=== PATIENT | female | born 1945 | race African-American/Black ===

== ENCOUNTER 2019-07-12 16:28 | Inpatient (IN) | payer MEDICARE ==
--- NOTE | 2019-07-12 17:49 | ER Document Report ---
ED Medical Screen (RME) - General Chief Complaint: Foot Pain Stated Complaint: TOE PAIN Time Seen by Provider: 07/12/19 17:44 Primary Care Provider: JANI LUGO MD [Primary Care Provider] - Follow up as needed Mode of Arrival: Wheelchair Information source: Patient Notes: 73-year-old female presented to ED for gangrene to the right great toe. She was sent to the emergency room by Dr. Lugo. Is a diabetic with loss of sight and tried to cut her own toenails in February. She states she has a little pain every now and then. She states she does take medications for high blood pressure. She is alert oriented respirations regular nonlabored speaking in full sentences. TRAVEL OUTSIDE OF THE [place] IN LAST 30 DAYS: No - Related Data Allergies/Adverse Reactions: No Known Allergies Allergy (Verified 07/12/19 17:43) Past Medical History - Past Medical History Cardiac Medical History: Reports: Hx Hypertension Endocrine Medical History: Reports: Hx Diabetes Mellitus Type 1 Past Surgical History: Reports: Hx Hysterectomy - Immunizations Hx Diphtheria, Pertussis, Tetanus Vaccination: Yes Physical Exam - Vital signs Vitals: Temp Pulse Resp BP Pulse Ox 98.3 F 98 16 146/78 H 98 07/12/19 16:36 07/12/19 16:36 07/12/19 16:36 07/12/19 16:36 07/12/19 16:36 Course - Vital Signs Vital signs: Temp Pulse Resp BP Pulse Ox 98.3 F 98 16 146/78 H 98 07/12/19 16:36 07/12/19 16:36 07/12/19 16:36 07/12/19 16:36 07/12/19 16:36 Doctor's Discharge - Discharge Referrals: JANI LUGO MD [Primary Care Provider] - Follow up as needed
[2019-07-12 18:31] LABS: ABSOLUTE BASOPHILS # (AUTO) 0.1 10^3/uL (0.0-0.2); ABSOLUTE EOSINOPHILS # (AUTO) 0.1 10^3/uL (0.0-0.6); ABSOLUTE LYMPHOCYTES (AUTO) 2.5 10^3/uL (0.5-4.7); ABSOLUTE MONOCYTES (AUTO) 0.5 10^3/uL (0.1-1.4); ABSOLUTE NEUT (AUTO) 6.9 10^3/uL (1.7-8.2); EOSINOPHILS % (AUTO) 1.2 % (0-6); HEMATOCRIT 35.7 % (36.0-47.0); HEMOGLOBIN 11.6 g/dL (12.0-15.5); LYMPHOCYTES % (AUTO) 24.4 % (13-45); MEAN CORPUSCULAR HEMOGLOBIN 26.3 pg (27.0-33.4); MEAN CORPUSCULAR HGB CONC 32.6 g/dL (32.0-36.0); MEAN CORPUSCULAR VOLUME 81 fl (80-97); MONOCYTES % (AUTO) 5.4 % (3-13); PLATELET COUNT 418 10^3/uL (150-450); RED BLOOD COUNT 4.42 10^6/uL (3.72-5.28); RED CELL DISTRIBUTION WIDTH 13.7 % (11.5-14.0); TOTAL CELLS COUNTED % (AUTO) 100 %; WHITE BLOOD COUNT 10.1 10^3/uL (4.0-10.5)
--- NOTE | 2019-07-12 18:46 | RADIOLOGY REPORT (SQ) ---
EXAM DESCRIPTION: FOOT RIGHT COMPLETE COMPLETED DATE/TIME: 07/12/2019 6:28 pm REASON FOR STUDY: Gangrene right great toe COMPARISON: None. NUMBER OF VIEWS: Three views. TECHNIQUE: AP, lateral and oblique radiographic images acquired of the right foot. LIMITATIONS: None. FINDINGS: MINERALIZATION: Osteopenia. BONES: No acute fracture or dislocation. No cortical destruction. JOINTS: No effusions. SOFT TISSUES: Soft tissue irregularity of the great toe. OTHER: No other significant finding. IMPRESSION: Soft tissue irregularity of the great toe without radiographic findings of acute underly ing bone abnormality. TECHNICAL DOCUMENTATION: JOB ID: [id number] [employer]- All Rights Reserved Reading location - IP/workstation name: [email or web address] [email or web address]
[2019-07-12 18:55] LABS: ALBUMIN 3.6 g/dL (3.5-5.0); ALKALINE PHOSPHATASE 122 U/L (38-126); ANION GAP 10 (5-19); ASPARTATE AMINO TRANSFERASE 14 U/L (14-36); BILIRUBIN,DIRECT 0.1 mg/dL (0.0-0.4); BILIRUBIN,TOTAL 0.3 mg/dL (0.2-1.3); BLOOD UREA NITROGEN 20 mg/dL (7-20); CALCIUM 9.5 mg/dL (8.4-10.2); CARBON DIOXIDE 25 mmol/L (22-30); CHLORIDE 105 mmol/L (98-107); GLUCOSE 191 mg/dL (75-110); POTASSIUM 4.4 mmol/L (3.6-5.0)
--- NOTE | 2019-07-12 20:36 | ER Document Report ---
ED Extremity Problem, Lower - General Chief Complaint: Toe Injury Stated Complaint: TOE PAIN Time Seen by Provider: 07/12/19 17:44 Mode of Arrival: Wheelchair Notes: Patient is a 73-year-old female with a history of insulin-dependent type 2 diabetes and hypertension that comes to the emergency department for chief com plaint of concerns about developing pain, foul smell, and drainage from the right great toe. She states that back in February she was clipping her nails and she accidentally removed the toenail, she states it has not healed since that time. She still able to ambulate. She denies fever/chills, nausea/vomiting. She states that yesterday it started to drain so she was taken to her primary care provider Dr. Lugo today, her states that they were referred from the office to the emergency department for evaluation for her toe. She denies any other complaints. Vaccinations up-to-date. She denies history of smoking, alcohol, recreational drugs, or blood thinner use. TRAVEL OUTSIDE OF THE [place] IN LAST 30 DAYS: No - Related Data Allergies/Adverse Reactions: No Known Allergies Allergy (Verified 07/12/19 17:43) Past Medical History - General Information source: Patient - Social History Smoking Status: Never Smoker Chew tobacco use (# tins/day): No Frequency of alcohol use: None Drug Abuse: None Lives with: Family Family History: Reviewed & Not Pertinent Patient has suicidal ideation: No Patient has homicidal ideation: No - Past Medical History Cardiac Medical History: Reports: Hx Hypertension Endocrine Medical History: Reports: Hx Diabetes Mellitus Type 2 - Insulin- dependent Past Surgical History: Reports: Hx Hysterectomy - Immunizations Hx Diphtheria, Pertussis, Tetanus Vaccination: Yes Review of Systems - Review of Systems Constitutional: No symptoms reported EENT: No symptoms reported Cardiovascular: No symptoms reported Respiratory: No symptoms reported Gastrointestinal: No symptoms reported Genitourinary: No symptoms reported Female Genitourinary: No symptoms reported Skin: See HPI Hematologic/Lymphatic: No symptoms reported Neurological/Psychological: No symptoms reported Physical Exam - Vital signs Vitals: Temp Pulse Resp BP Pulse Ox 98.3 F 98 16 146/78 H 98 07/12/19 16:36 07/12/19 16:36 07/12/19 16:36 07/12/19 16:36 07/12/19 16:36 - Notes Notes: GENERAL: Alert, interacts well. No acute distress. HEAD: Normocephalic, atraumatic. EYES: Pupils equal, round, and reactive to light. Extraocular movements intact. ENT: Oral mucosa moist, tongue midline. Oropharynx unremarkable. Airway patent. LUNGS: Clear to auscultation bilaterally, no wheezes, rales, or rhonchi. No respiratory distress. HEART: Regular rate and rhythm. No murmur ABDOMEN: Soft, non-tender. Non-distended. Bowel sounds present in all 4 quadrants. GENITOURINARY: Deferred EXTREMITIES: Left great toe is swollen, erythematous, there is discoloration of the tissue around the nailbed, nail is gone, there is some mild tenderness over the area. Cap refill still intact, sensation diminished but intact. No current drainage. Foul smell. Unremarkable lower extremity exam otherwise including dorsalis pedis, ankle, leg, knee. BACK: no cervical, thoracic, lumbar midline tenderness. No saddle anesthesia, normal distal neurovascular exam. Moves all extremities in full range of motion. NEUROLOGICAL: Alert and oriented x3. Normal speech. Cranial nerves II through XII grossly intact. PSYCH: Normal affect, normal mood. SKIN: Warm, dry, normal turgor. No rashes or lesions noted. Course - Re-evaluation Re-evalutation: CBC, chemistry nonspecific. Vital signs unremarkable. Patient well-appearing with no other complaints except for the toe. Toe is somewhat erythematous, foul smell, no current discharge, toenail is gone. X-ray showing only soft tissue swelling without bony involvement. Because of patient's worsening toe in the setting of diabetes with developing infection and concern for possible gangrene I will discuss with general surgery. Patient was evaluated by Dr. Alberto, he is excepting the patient to his service. - Vital Signs Vital signs: Temp Pulse Resp BP Pulse Ox 98.1 F 94 18 172/82 H 96 07/13/19 03:28 07/13/19 03:28 07/13/19 03:28 07/13/19 03:28 07/13/19 03:28 - Laboratory Result Diagrams: 07/13/19 05:19 07/13/19 05:19 Laboratory results interpreted by me: 07/12/19 07/12/19 18:00 18:00 Hgb 11.6 L Hct 35.7 L MCH 26.3 L Est GFR (MDRD) Non-Af 52 L Glucose 191 H Discharge - Discharge Clinical Impression: Toe infection, Insulin dependent diabetes mellitus Condition: Stable Disposition: ADMITTED OBSERVATION Admitting Provider: Surgicalist Unit Admitted: Surgical Floor
[2019-07-12] MEDS ORDERED: CEFTRIAXONE 1 GM/D5W RTU 1 GM/50 ML RTUPB IV SCH (22:00)
[2019-07-12] MEDS ORDERED: GLUCAGON,HUMAN RECOMB 1 MG INJ SUBCUT PRN (22:18)
[2019-07-12] MEDS ORDERED: DEXTROSE 50%-WATER 25 GM/50 ML DISP.SYRIN IV PRN ×2 (22:18)
[2019-07-12] MEDS ORDERED: DEXTROSE 40% GEL 15 GM TUBE PO PRN ×2 (22:18)
--- NOTE | 2019-07-12 22:18 | PDOC H&P ---
History of Present Illness Admission Date/PCP: JANI FARIA MD Patient complains of: Right great toe foul smellinmg drainage History of Present Illness: SMITA BAEZ is a 73 year old female, obese, type 2 diabetes, hypertensive, with a history of right great toe swelling and foul smelling drainage for the past few days. According to the , the patient is blind however she was trying to him the right great nail by herself. As a consequence of this, her right great toe nail fell off and since then she has been experiencing foul- smelling drainage from the toe as well as swelling. Past Medical History Cardiac Medical History: Reports: Hypertension Endocrine Medical History: Reports: Diabetes Mellitus Type 1 Past Surgical History Past Surgical History: Reports: Hysterectomy Social History Smoking Status: Never Smoker Electronic Cigarette use?: No Family History Family History: Reviewed & Not Pertinent Parental Family History Reviewed: No Children Family History Reviewed: No Sibling(s) Family History Reviewed.: No Medication/Allergy Home Medications: Insulin Glargine,Hum.rec.anlog [Lantus Insulin 100 Unit/mL] 30 unit SUBCUT QHS 08/16/12 Lisinopril/Hydrochlorothiazide [Zestoretic 20-12.5 mg Tablet] 1 tab PO BID 08/16/12 Metformin HCl [Glucophage 850 Mg Tablet] 850 mg PO BID 08/16/12 Ciprofloxacin HCl [Cipro 500 mg Tablet] 500 mg PO BID #20 tablet 08/17/12 Hydrocodone Bit/Acetaminophen [Hydrocodon-Acetaminophen 5-325] 1 each PO Q4HP PRN #15 tablet 01/31/14 Allergies/Adverse Reactions: No Known Allergies Allergy (Verified 07/12/19 17:43) Physical Exam Vital Signs: Temp Pulse Resp BP Pulse Ox 98.3 F 98 16 146/78 H 98 07/12/19 16:36 07/12/19 16:36 07/12/19 16:36 07/12/19 16:36 07/12/19 16:36 Intake & Output 07/11/19 07/12/19 07/13/19 06:59 06:59 06:59 Weight 93.6 kg General appearance: PRESENT: no acute distress Head exam: PRESENT: atraumatic, normocephalic Eye exam: PRESENT: EOMI Mouth exam: PRESENT: neck supple Teeth exam: PRESENT: poor dentation Neck exam: PRESENT: full ROM Respiratory exam: PRESENT: clear to auscultation burak Cardiovascular exam: PRESENT: RRR Pulses: PRESENT: other - Diminished dorsalis pedis and posterior tibialis pulses bilaterally GI/Abdominal exam: PRESENT: hypoactive bowel sounds, soft Rectal exam: PRESENT: deferred Extremities exam: PRESENT: full ROM, other - Right great toe = edema, loss of nail with exposed nail bed dry, right forefoot skin changes as per inflammatory changes Musculoskeletal exam: PRESENT: full ROM Neurological exam: PRESENT: alert, oriented to person, oriented to situation Psychiatric exam: PRESENT: appropriate affect Skin exam: PRESENT: warm Results Laboratory Results: 07/12/19 18:00 07/12/19 18:00 07/12/19 07/12/19 18:00 18:00 WBC 10.1 RBC 4.42 Hgb 11.6 L Hct 35.7 L MCV 81 MCH 26.3 L MCHC 32.6 RDW 13.7 Plt Count 418 Seg Neutrophils % 68.0 Sodium 139.7 Potassium 4.4 Chloride 105 Carbon Dioxide 25 Anion Gap 10 BUN 20 Creatinine 1.05 Est GFR ( Amer) > 60 Glucose 191 H Calcium 9.5 Total Bilirubin 0.3 AST 14 Alkaline Phosphatase 122 Total Protein 8.0 Albumin 3.6 Impressions: Foot X-Ray 07/12/19 17:45 IMPRESSION: Soft tissue irregularity of the great toe without radiographic findings of acute underlying bone abnormality. Assessment & Plan - Diagnosis (1) right great toe infection Is this a current diagnosis for this admission?: Yes (2) Insulin dependent diabetes mellitus Is this a current diagnosis for this admission?: Yes - Plan Summary Plan Summary: Assessment: Morbidly obese diabetic type II female Right foot shows great toe signs of infection (edema, foul-smelling drainage, skin changes, loss of nail), possibly extending to the forefoot hypertension Normal blood work X-ray right foot shows soft tissue changes of the great toe Plan: Admit N.p.o. after midnight MRI right foot distal leg tomorrow to rule out bone involvement If the patient has osteomyelitis of the toe/ foprefoot, she will undergo great toe amputation or forefoot amputation
[2019-07-12] MEDS ORDERED: FAMOTIDINE INJ/PF 20 MG/2 ML SDV IV ONE (22:45)
[2019-07-12] MEDS: NORMAL SALINE 1000 ML 1,000 ML IV PRN (22:56)
[2019-07-12] MEDS: CLINDAMYCIN 300 MG/D5W RTU 300 MG/50 ML RTUPB IV SCH (22:58)
[2019-07-12] MEDS ORDERED: DOCUSATE SODIUM 100 MG CAPSULE PO ONE (23:00)
[2019-07-13] MEDS ORDERED: GLUCAGON,HUMAN RECOMB 1 MG INJ IM PRN (00:02)
[2019-07-13] MEDS ORDERED: DEXTROSE 40% GEL 15 GM TUBE PO PRN ×2 (00:02)
[2019-07-13] MEDS ORDERED: DEXTROSE 50%-WATER 25 GM/50 ML DISP.SYRIN IV PRN ×2 (00:02)
--- NOTE | 2019-07-13 05:19 | PDOC CONSULTATION ---
Consultation Consult Date: 07/13/19 Attending physician:: BELEN FENG Provider Consulted: YANIV DE GUZMAN Consult reason:: Diabetes History of Present Illness Admission Date/PCP: 07/12/19 22:02 JANI FARIA MD Patient complains of: Right great toe necrosis History of Present Illness: SMITA BAEZ is a 73 year old female with past medical history of morbid obesity, hypertension, diabetes and subsequent blindness. She presents with a couple of weeks of discoloration to her right great toe and uncontrolled blood pressure. Seen by primary care today was referred to the emergency department for evaluation for what appears to be gangrene. She is referred to surgery with plans for MRI and likely amputation. Hospitalist is consulted for management of diabetes and hypertension. Patient admits recent uncontrolled hyperglycemia to spite medication compliance. Past Medical History Cardiac Medical History: Reports: Hypertension Endocrine Medical History: Reports: Diabetes Mellitus Type 1 Psychiatric Medical History: Denies: Depression Past Surgical History Past Surgical History: Reports: Hysterectomy Social History Information Source: Patient, [facility] Records Lives with: Spouse/Significant other Smoking Status: Never Smoker Electronic Cigarette use?: No Frequency of Alcohol Use: None Hx Recreational Drug Use: No Drugs: None Hx Prescription Drug Abuse: No - Advance Directive Resuscitation Status: Full Code Family History Family History: CAD Parental Family History Reviewed: Yes Children Family History Reviewed: Yes Sibling(s) Family History Reviewed.: Yes Medication/Allergy Home Medications: Insulin Glargine,Hum.rec.anlog [Lantus Insulin 100 Unit/mL] 30 unit SUBCUT QHS 08/16/12 Lisinopril/Hydrochlorothiazide [Zestoretic 20-12.5 mg Tablet] 1 tab PO BID 08/16/12 Metformin HCl [Glucophage 850 Mg Tablet] 850 mg PO BID 08/16/12 Ciprofloxacin HCl [Cipro 500 mg Tablet] 500 mg PO BID #20 tablet 08/17/12 Hydrocodone Bit/Acetaminophen [Hydrocodon-Acetaminophen 5-325] 1 each PO Q4HP PRN #15 tablet 01/31/14 Allergies/Adverse Reactions: No Known Allergies Allergy (Verified 07/12/19 17:43) Review of Systems Constitutional: ABSENT: chills, fever(s), headache(s), weight gain, weight loss Eyes: ABSENT: visual disturbances Ears: ABSENT: hearing changes Cardiovascular: ABSENT: chest pain, dyspnea on exertion, edema, orthropnea, pa lpitations Respiratory: ABSENT: cough, hemoptysis Gastrointestinal: ABSENT: abdominal pain, constipation, diarrhea, hematemesis, hematochezia, nausea, vomiting Genitourinary: ABSENT: dysuria, hematuria Musculoskeletal: ABSENT: joint swelling Integumentary: ABSENT: rash, wounds Neurological: ABSENT: abnormal gait, abnormal speech, confusion, dizziness, focal weakness, syncope Psychiatric: ABSENT: anxiety, depression, homidical ideation, suicidal ideation Endocrine: ABSENT: cold intolerance, heat intolerance, polydipsia, polyuria Hematologic/Lymphatic: ABSENT: easy bleeding, easy bruising Physical Exam Vital Signs: Temp Pulse Resp BP Pulse Ox 98.1 F 94 18 172/82 H 96 07/13/19 03:28 07/13/19 03:28 07/13/19 03:28 07/13/19 03:28 07/13/19 03:28 Intake & Output 07/11/19 07/12/19 07/13/19 11:59 11:59 11:59 Intake Total 100 Balance 100 Weight 91.2 kg General appearance: PRESENT: no acute distress, well-developed, well-nourished Head exam: PRESENT: atraumatic, normocephalic Eye exam: PRESENT: conjunctiva pink, EOMI, PERRLA. ABSENT: scleral icterus Ear exam: PRESENT: normal external ear exam Mouth exam: PRESENT: moist, tongue midline Neck exam: ABSENT: carotid bruit, JVD, lymphadenopathy, thyromegaly Respiratory exam: PRESENT: clear to auscultation burak. ABSENT: rales, rhonchi, wheezes Cardiovascular exam: PRESENT: RRR. ABSENT: diastolic murmur, rubs, systolic murmur Pulses: PRESENT: normal dorsalis pedis pul Vascular exam: PRESENT: normal capillary refill GI/Abdominal exam: PRESENT: normal bowel sounds, soft. ABSENT: distended, guarding, mass, organolmegaly, rebound, tenderness Rectal exam: PRESENT: deferred Extremities exam: PRESENT: full ROM. ABSENT: calf tenderness, clubbing, pedal edema Neurological exam: PRESENT: alert, awake, oriented to person, oriented to place, oriented to time, oriented to situation, CN II-XII grossly intact. ABSENT: motor sensory deficit Psychiatric exam: PRESENT: appropriate affect, normal mood. ABSENT: homicidal ideation, suicidal ideation Skin exam: PRESENT: dry, intact, warm, other - Right great toe ulcer with necrosis, subsequent skin darkening to the ankle.. ABSENT: cyanosis, rash Results Laboratory Results: 07/12/19 18:00 07/12/19 18:00 07/12/19 07/12/19 18:00 18:00 WBC 10.1 RBC 4.42 Hgb 11.6 L Hct 35.7 L MCV 81 MCH 26.3 L MCHC 32.6 RDW 13.7 Plt Count 418 Seg Neutrophils % 68.0 Sodium 139.7 Potassium 4.4 Chloride 105 Carbon Dioxide 25 Anion Gap 10 BUN 20 Creatinine 1.05 Est GFR ( Amer) > 60 Glucose 191 H Calcium 9.5 Total Bilirubin 0.3 AST 14 Alkaline Phosphatase 122 Total Protein 8.0 Albumin 3.6 Impressions: Foot X-Ray 07/12/19 17:45 IMPRESSION: Soft tissue irregularity of the great toe without radiographic findings of acute underlying bone abnormality. Assessment and Plan - Diagnosis (1) Hypertension Is this a current diagnosis for this admission?: Yes Plan: RAMSEY inhibitor, hydralazine, Lasix as needed (2) Insulin dependent diabetes mellitus Is this a current diagnosis for this admission?: Yes Plan: Two thirds usual long-acting insulin, Humalog sliding scale ordered (3) right great toe infection Is this a current diagnosis for this admission?: Yes Plan: Anticipate osteoporotic requiring amputation follow-up MRI and surgery - Time Time Spent with patient: 15-24 minutes - Inpatient Certification Medical Necessity: Need Close Monitoring Due to Risk of Patient Decompensation
[2019-07-13 05:44] LABS: ABSOLUTE EOSINOPHILS # (AUTO) 0.1 10^3/uL (0.0-0.6); ABSOLUTE LYMPHOCYTES (AUTO) 2.2 10^3/uL (0.5-4.7); ABSOLUTE MONOCYTES (AUTO) 0.5 10^3/uL (0.1-1.4); ABSOLUTE NEUT (AUTO) 5.4 10^3/uL (1.7-8.2); BASOPHILS % (AUTO) 0.5 % (0-2); EOSINOPHILS % (AUTO) 1.2 % (0-6); HEMATOCRIT 32.3 % (36.0-47.0); HEMOGLOBIN 10.7 g/dL (12.0-15.5); LYMPHOCYTES % (AUTO) 26.8 % (13-45); MEAN CORPUSCULAR HEMOGLOBIN 26.3 pg (27.0-33.4); MEAN CORPUSCULAR VOLUME 80 fl (80-97); MONOCYTES % (AUTO) 6.3 % (3-13); PLATELET COUNT 387 10^3/uL (150-450); RED BLOOD COUNT 4.06 10^6/uL (3.72-5.28); RED CELL DISTRIBUTION WIDTH 13.9 % (11.5-14.0); SEGMENTED NEUTROPHILS % (AUTO) 65.2 % (42-78); TOTAL CELLS COUNTED % (AUTO) 100 %; WHITE BLOOD COUNT 8.2 10^3/uL (4.0-10.5)
[2019-07-13 05:57] LABS: ANION GAP 9 (5-19); BLOOD UREA NITROGEN 18 mg/dL (7-20); CALCIUM 9.2 mg/dL (8.4-10.2); CARBON DIOXIDE 22 mmol/L (22-30); CHLORIDE 112 mmol/L (98-107); GLUCOSE 246 mg/dL (75-110); POTASSIUM 4.7 mmol/L (3.6-5.0)
[2019-07-13] MEDS ORDERED: CLINDAMYCIN 300 MG/D5W RTU 300 MG/50 ML RTUPB IV ONE (05:57)
[2019-07-13] MEDS: CLINDAMYCIN 300 MG/D5W RTU 300 MG/50 ML RTUPB IV SCH ×3 (06:08→21:10)
[2019-07-13] MEDS: NORMAL SALINE 1000 ML 1,000 ML IV PRN (07:33)
[2019-07-13] MEDS ORDERED: FAMOTIDINE INJ/PF 20 MG/2 ML SDV IV SCH (10:00)
[2019-07-13] MEDS: LOSARTAN POTASSIUM 50 MG TABLET PO SCH ×2 (11:17→21:10)
--- NOTE | 2019-07-13 11:55 | RADIOLOGY REPORT (SQ) ---
EXAM DESCRIPTION: MRI RT LOWER EXTREMITY WITHOUT COMPLETED DATE/TIME: 07/13/2019 10:17 am REASON FOR STUDY: r/o osteomyelitis; do early on 07/13 for surgery? COMPARISON: Plain radiographs TECHNIQUE: Multiplanar imaging of the right great toe to include fat and fluid sensitive sequences. LIMITATIONS: None. FINDINGS: BONE MARROW: Decreased signal noted on T1 weighted images medullary distribution distal ph alanx of the great toe. There is 1 small area of cortical disruption along the plantar surface of th e distal tuft. Findings indicate osteomyelitis. SOFT TISSUES: Soft tissue ulcer dorsal surface great toe. No abscess. OTHER: No other significant finding. IMPRESSION: Osteomyelitis involving the distal phalanx of the great toe. Overlying soft tissue juvenal luciano TECHNICAL DOCUMENTATION: JOB ID: [id number] [employer]- All Rights Reserved Reading location - IP/workstation name: [email or web address]
[2019-07-13] MEDS: INSULIN LISPRO 100 UNIT/ML 3 ML VIAL SUBCUT SCH ×3 (12:25→17:38)
--- NOTE | 2019-07-13 12:51 | PDOC PROGRESS REPORT ---
Subjective Progress Note for:: 07/13/19 Subjective:: Patient comfortable, she has no complaints Reason For Visit: RIGHT GREAT TOE INFECTION Physical Exam Vital Signs: Temp Pulse Resp BP Pulse Ox 98.4 F 96 18 179/84 H 99 07/13/19 11:33 07/13/19 11:33 07/13/19 11:33 07/13/19 11:33 07/13/19 11:33 Intake & Output 07/12/19 07/13/19 07/14/19 06:59 06:59 06:59 Intake Total 100 912 Balance 100 912 Weight 91.2 kg General appearance: PRESENT: no acute distress Extremities exam: PRESENT: other - Right foot = loss of nail with exposed wally lbed right great toe, edema of the right great toe Results Laboratory Results: 07/13/19 05:19 07/13/19 05:19 07/12/19 07/12/19 07/13/19 18:00 18:00 05:19 WBC 10.1 8.2 RBC 4.42 4.06 Hgb 11.6 L 10.7 L Hct 35.7 L 32.3 L MCV 81 80 MCH 26.3 L 26.3 L MCHC 32.6 33.0 RDW 13.7 13.9 Plt Count 418 387 Seg Neutrophils % 68.0 65.2 Sodium 139.7 Potassium 4.4 Chloride 105 Carbon Dioxide 25 Anion Gap 10 BUN 20 Creatinine 1.05 Est GFR ( Amer) > 60 Glucose 191 H Calcium 9.5 Total Bilirubin 0.3 AST 14 Alkaline Phosphatase 122 Total Protein 8.0 Albumin 3.6 07/13/19 05:19 WBC RBC Hgb Hct MCV MCH MCHC RDW Plt Count Seg Neutrophils % Sodium 142.5 Potassium 4.7 Chloride 112 H Carbon Dioxide 22 Anion Gap 9 BUN 18 Creatinine 1.00 Est GFR ( Amer) > 60 Glucose 246 H Calcium 9.2 Total Bilirubin AST Alkaline Phosphatase Total Protein Albumin Impressions: Foot X-Ray 07/12/19 17:45 IMPRESSION: Soft tissue irregularity of the great toe without radiographic findings of acute underlying bone abnormality. Lower Extremity MRI 07/13/19 00:00 IMPRESSION: Osteomyelitis involving the distal phalanx of the great toe. Overlying soft tissue ulcer. Assessment & Plan - Diagnosis (1) right great toe infection Is this a current diagnosis for this admission?: Yes (2) Insulin dependent diabetes mellitus Is this a current diagnosis for this admission?: Yes - Time Time Spent with patient: 25-34 minutes - Plan Summary Plan Summary: Assessment: Right great toe loss of nail with exposed nailbed with swelling and erythema MRI of the right foot shows osteomyelitis of the great toe distal phalanx Type 2 diabetes Obesity Hypertension All above were controlled Plan: Right great toe ray amputation today Patient agrees with above Procedure, risks, complications, discussed with the patient including the possibility of bleeding, progression of infection with loss of limb, her questions were answered to her satisfaction and she decided to proceed
[2019-07-13] MEDS ORDERED: MIDAZOLAM 2 MG/2 ML INJ ONE (14:20)
[2019-07-13] MEDS ORDERED: ONDANSETRON HCL INJ/PF 4 MG/2 ML SDV ONE (14:20)
[2019-07-13] MEDS ORDERED: PROPOFOL INJ 200 MG/20 ML VIAL IV ONE (14:20)
[2019-07-13] MEDS ORDERED: FENTANYL CITRATE INJ/PF 100 MCG/2 ML AMPUL ONE (14:20)
[2019-07-13] MEDS ORDERED: LIDOCAINE 1% INJ-PF (10 MG/ML) 30 ML SDV ONE (15:01)
[2019-07-13] MEDS ORDERED: LIDOCAINE 1% INJ (10 MG/ML) 10 ML MDV INJ ONE (15:06)
[2019-07-13] MEDS ORDERED: PROMETHAZINE HCL INJ 25 MG/1 ML VIAL IV PRN (15:11)
[2019-07-13] MEDS ORDERED: DIPHENHYDRAMINE HCL 50 MG/ML VIAL IV PRN (15:11)
[2019-07-13] MEDS ORDERED: MEPERIDINE HCL/PF INJ 25 MG/1 ML DISP.SYRIN IV PRN (15:11)
[2019-07-13] MEDS ORDERED: FENTANYL CITRATE INJ/PF 100 MCG/2 ML AMPUL IV PRN ×3 (15:11)
[2019-07-13] MEDS ORDERED: NORMAL SALINE 1000 ML 1,000 ML IV PRN (16:18)
--- NOTE | 2019-07-13 16:29 | Operative Report ---
Nonrecallable Operative Report DATE OF SURGERY: 07/13/19 PREOPERATIVE DIAGNOSIS: Cellulitis and osteomyelitis of the right great toe POSTOPERATIVE DIAGNOSIS: Same OPERATION: Right great toe ray amputation SURGEON: BELEN FENG ANESTHESIA: Local - 10 mL of 1% lidocaine TISSUE REMOVED OR ALTERED: Right great toe with distal head of first metatarsal bone COMPLICATIONS: None ESTIMATED BLOOD LOSS: None INTRAOPERATIVE FINDINGS: As above, right great toe with new cellulitis, missing nail, and exposed nailbed PROCEDURE: The procedure was done in the operating room, the patient was placed in a supine position, intravenous MAC anesthesia induced by customer resource specialist. Proximally to the area of interest, webroll cotton was circumferentially applied to the right leg followed by a disposable tourniquet, protected by a 1010 drape. The right foot and distal leg was prepped and draped in the usual fashion. The extremity was exanguinated with an Esmarch band. The tourniquet was inflated to about 150 mmHg above the systolic blood pressure. A circumferential incision was made around the proposed area of amputation; the incision was deepened through the subcutaneous tissue down to the bone: this was continued circumferentially. The bone was exposed proximally with periosteal elevator and divided as proximally as possible with a small oscillating electrical saw include the distal head of the first metatarsal bone. The specimen was removed from the surgical field and sent to pathology. Local vessels were identified and cauterized. The bone stump edges were boosted with a rongeur and the stump was covered with bone wax. The surgical field was then irrigated with normal saline until clear. A 1/4 inch [place] drain was placed deep in the surgical field. The subcutaneous tissues were loosely approximated with deep inverted 3-0 Vicryl sutures and the skin was closed loosely with 2-0 nylon interrupted vertical mattress sutures. Xeroform gauze was placed on the surgical wound followed by dry dressings, ABDs, web roll, and Kerlix roll to cover the entire foot and distal third of the right leg. A prefabricated fiberglass padded splint was applied posteriorly to the extremity into the plantar surface and kept in position with a 6 inch Pepe bandage. This was allowed to cure while the extremity was kept in a functional position. The tourniquet was deflated; the tourniquet time was 43 minutes. The patient tolerated procedure well and was transferred to the recovery room in satisfactory conditions.
[2019-07-13] MEDS: DOCUSATE SODIUM 100 MG CAPSULE PO SCH (17:16)
[2019-07-13] MEDS: AMLODIPINE BESYLATE 10 MG TABLET PO SCH (17:26)
[2019-07-13] MEDS: KETOROLAC TROMETHAMINE INJ/PF 30 MG/1 ML SDV IV SCH (17:26)
[2019-07-13] MEDS: FAMOTIDINE 20 MG TABLET PO SCH (17:26)
[2019-07-13] MEDS: ACETAMINOPHEN 1,000 MG/100 ML RTUPB IV SCH (17:29)
[2019-07-13] MEDS ORDERED: ACETAMINOPHEN 1,000 MG/100 ML RTUPB IV SCH (18:00)
[2019-07-13] MEDS: INSULIN GLARGINE,HUM.REC.ANLOG 1,000 UNIT/10 ML VIAL SUBCUT SCH (21:10)
[2019-07-14] MEDS: KETOROLAC TROMETHAMINE INJ/PF 30 MG/1 ML SDV IV SCH ×5 (00:04→23:10)
[2019-07-14] MEDS: ACETAMINOPHEN 1,000 MG/100 ML RTUPB IV SCH ×2 (00:04→05:34)
[2019-07-14 04:54] LABS: ABSOLUTE EOSINOPHILS # (AUTO) 0.1 10^3/uL (0.0-0.6); ABSOLUTE LYMPHOCYTES (AUTO) 2.3 10^3/uL (0.5-4.7); ABSOLUTE MONOCYTES (AUTO) 0.5 10^3/uL (0.1-1.4); ABSOLUTE NEUT (AUTO) 3.9 10^3/uL (1.7-8.2); BASOPHILS % (AUTO) 0.6 % (0-2); EOSINOPHILS % (AUTO) 1.4 % (0-6); HEMATOCRIT 31.1 % (36.0-47.0); HEMOGLOBIN 10.2 g/dL (12.0-15.5); LYMPHOCYTES % (AUTO) 34.1 % (13-45); MEAN CORPUSCULAR HEMOGLOBIN 26.1 pg (27.0-33.4); MEAN CORPUSCULAR HGB CONC 32.8 g/dL (32.0-36.0); MEAN CORPUSCULAR VOLUME 80 fl (80-97); MONOCYTES % (AUTO) 7.2 % (3-13); PLATELET COUNT 403 10^3/uL (150-450); RED BLOOD COUNT 3.91 10^6/uL (3.72-5.28); RED CELL DISTRIBUTION WIDTH 14.1 % (11.5-14.0); SEGMENTED NEUTROPHILS % (AUTO) 56.7 % (42-78); TOTAL CELLS COUNTED % (AUTO) 100 %; WHITE BLOOD COUNT 6.9 10^3/uL (4.0-10.5)
[2019-07-14 05:11] LABS: ANION GAP 7 (5-19); BLOOD UREA NITROGEN 20 mg/dL (7-20); CALCIUM 8.6 mg/dL (8.4-10.2); CARBON DIOXIDE 23 mmol/L (22-30); CHLORIDE 109 mmol/L (98-107); CHOLESTEROL 263.79 mg/dL (0-200); GLUCOSE 217 mg/dL (75-110); POTASSIUM 4.5 mmol/L (3.6-5.0); TRIGLYCERIDES 151 mg/dL (<150)
[2019-07-14 05:21] LABS: DIRECT LDL 193 mg/dL (<100)
[2019-07-14 05:26] LABS: VLDL CHOLESTEROL 30.2 mg/dL (10-31)
[2019-07-14] MEDS: FAMOTIDINE 20 MG TABLET PO SCH ×2 (05:34→17:00)
[2019-07-14] MEDS: CLINDAMYCIN 300 MG/D5W RTU 300 MG/50 ML RTUPB IV SCH ×3 (06:03→21:25)
[2019-07-14] MEDS: INSULIN LISPRO 100 UNIT/ML 3 ML VIAL SUBCUT SCH ×3 (07:49→16:59)
--- NOTE | 2019-07-14 09:32 | PDOC PROGRESS REPORT ---
Subjective Progress Note for:: 07/14/19 Subjective:: SMITA BAEZ is a 73 year old female with past medical history of morbid obesity, hypertension, diabetes and subsequent blindness. She presents with a couple of weeks of discoloration to her right great toe and uncontrolled blood pressure. Seen by primary care today was referred to the emergency department for evaluation for what appears to be gangrene. She is referred to surgery with plans for MRI and likely amputation. Hospitalist is consulted for management of diabetes and hypertension. Patient admits recent uncontrolled hyperglycemia to spite medication compliance. 07/14/2019. No acute events overnight. Patient comfortably resting in bed enjoying her breakfast, in no apparent distress, stating that her right foot is hurting feels that she otherwise no fever, chills, nausea, vomiting, diarrhea, constipation or any urinary symptoms. Reason For Visit: RIGHT GREAT TOE INFECTION Physical Exam Vital Signs: Temp Pulse Resp BP Pulse Ox 98.4 F 83 18 157/82 H 97 07/14/19 07:49 07/14/19 07:49 07/14/19 07:49 07/14/19 07:49 07/14/19 07:49 Intake & Output 07/13/19 07/14/19 07/15/19 06:59 06:59 06:59 Intake Total 100 1862 Balance 100 1862 Weight 91.2 kg 91 kg General appearance: PRESENT: obese Head exam: PRESENT: atraumatic, normocephalic Respiratory exam: PRESENT: clear to auscultation burak. ABSENT: rales, rhonchi, wheezes Cardiovascular exam: PRESENT: RRR. ABSENT: diastolic murmur, rubs, systolic murmur GI/Abdominal exam: PRESENT: normal bowel sounds, soft. ABSENT: distended, guarding, mass, organolmegaly, rebound, tenderness Extremities exam: PRESENT: full ROM, other - Status post first right toe amputation. Dressing in place. No sign of discharge, neurovascularly intact.. ABSENT: calf tenderness, clubbing, pedal edema Neurological exam: PRESENT: alert, awake, oriented to person, oriented to place, oriented to time, oriented to situation, CN II-XII grossly intact. ABSENT: motor sensory deficit Results Laboratory Results: 07/14/19 04:33 07/14/19 04:33 07/14/19 07/14/19 07/14/19 04:33 04:33 04:33 WBC 6.9 RBC 3.91 Hgb 10.2 L Hct 31.1 L MCV 80 MCH 26.1 L MCHC 32.8 RDW 14.1 H Plt Count 403 Seg Neutrophils % 56.7 Sodium 138.5 Potassium 4.5 Chloride 109 H Carbon Dioxide 23 Anion Gap 7 BUN 20 Creatinine 1.22 Est GFR ( Amer) 53 L Glucose 217 H Calcium 8.6 Triglycerides 151 H Cholesterol 263.79 H LDL Cholesterol Direct 193 H VLDL Cholesterol 30.2 HDL Cholesterol 29 L TSH 1.79 Impressions: Foot X-Ray 07/12/19 17:45 IMPRESSION: Soft tissue irregularity of the great toe without radiographic findings of acute underlying bone abnormality. Lower Extremity MRI 07/13/19 00:00 IMPRESSION: Osteomyelitis involving the distal phalanx of the great toe. Overlying soft tissue ulcer. Assessment and Plan - Diagnosis (1) Osteomyelitis of great toe of right foot Is this a current diagnosis for this admission?: Yes Plan: Osteomyelitis of right right toe based on MRI and operative findings. Pending pathology report. Day 2 status post right toe amputation. Afebrile. WBC WNL. Cultures no growth x24 hours. Day 2 IV antibiotics. Day 2 IV clindamycin. Continue IV antibiotics. Follow pathology and culture results. Surgery following. (2) Obesity Qualifiers: Obesity classification: adult class 1 (BMI 30 - 34.9) Is this a current diagnosis for this admission?: Yes Plan: Likely dietary related. TSH WNL. Diet and lifestyle modification recommended. (3) Hyperlipidemia Is this a current diagnosis for this admission?: Yes Plan: ASCVD 49.9%. Started on high-dose statins. Diet and lifestyle modification recommended. Follow-up LFTs. Outpatient follow-up with PCP for evaluation of LFTs. (4) Hypertension Is this a current diagnosis for this admission?: Yes Plan: Not optimized. Appears euvolemic. Home meds are amlodipine 10 mg p.o. twice daily. Continue amlodipine 10 mg p.o. twice daily, losartan 50 mg p.o. twice daily. Adjust meds as needed. Outpatient PCP follow-up.
--- NOTE | 2019-07-14 09:44 | PDOC PROGRESS REPORT ---
Subjective Progress Note for:: 07/14/19 Subjective:: feels well Reason For Visit: RIGHT GREAT TOE INFECTION Physical Exam Vital Signs: Temp Pulse Resp BP Pulse Ox 98.4 F 83 18 157/82 H 97 07/14/19 07:49 07/14/19 07:49 07/14/19 07:49 07/14/19 07:49 07/14/19 07:49 Intake & Output 07/13/19 07/14/19 07/15/19 06:59 06:59 06:59 Intake Total 100 1862 Balance 100 1862 Weight 91.2 kg 91 kg General appearance: PRESENT: no acute distress Head exam: PRESENT: normocephalic Ear exam: PRESENT: normal external ear exam Mouth exam: PRESENT: moist Neck exam: PRESENT: full ROM Respiratory exam: PRESENT: clear to auscultation burak Cardiovascular exam: PRESENT: RRR GI/Abdominal exam: PRESENT: soft Rectal exam: PRESENT: deferred Extremities exam: PRESENT: other - rt great toe dressing intact, min drainage. Neurological exam: PRESENT: alert, awake, oriented to person, oriented to place Psychiatric exam: PRESENT: appropriate affect Skin exam: PRESENT: dry Results Laboratory Results: 07/14/19 04:33 07/14/19 04:33 07/14/19 07/14/19 07/14/19 04:33 04:33 04:33 WBC 6.9 RBC 3.91 Hgb 10.2 L Hct 31.1 L MCV 80 MCH 26.1 L MCHC 32.8 RDW 14.1 H Plt Count 403 Seg Neutrophils % 56.7 Sodium 138.5 Potassium 4.5 Chloride 109 H Carbon Dioxide 23 Anion Gap 7 BUN 20 Creatinine 1.22 Est GFR ( Amer) 53 L Glucose 217 H Calcium 8.6 Triglycerides 151 H Cholesterol 263.79 H LDL Cholesterol Direct 193 H VLDL Cholesterol 30.2 HDL Cholesterol 29 L TSH 1.79 Impressions: Foot X-Ray 07/12/19 17:45 IMPRESSION: Soft tissue irregularity of the great toe without radiographic findings of acute underlying bone abnormality. Lower Extremity MRI 07/13/19 00:00 IMPRESSION: Osteomyelitis involving the distal phalanx of the great toe. Overlying soft tissue ulcer. Assessment & Plan - Time Time Spent with patient: 25-34 minutes - Plan Summary Plan Summary: s/p rt great toe amputation drain in place will dc dresssing and poss drain in am. cont current rx.
[2019-07-14] MEDS: AMLODIPINE BESYLATE 10 MG TABLET PO SCH (09:58)
[2019-07-14] MEDS: DOCUSATE SODIUM 100 MG CAPSULE PO SCH (09:58)
[2019-07-14] MEDS: LOSARTAN POTASSIUM 50 MG TABLET PO SCH ×2 (09:58→21:23)
[2019-07-14] MEDS ORDERED: DIPHENHYDRAMINE HCL 25 MG CAPSULE PO ONE (18:45)
[2019-07-14] MEDS: ATORVASTATIN CALCIUM 40 MG TABLET PO SCH (21:23)
[2019-07-14] MEDS: INSULIN GLARGINE,HUM.REC.ANLOG 1,000 UNIT/10 ML VIAL SUBCUT SCH (21:23)
[2019-07-14] MEDS: OXYCODONE-ACETAMINOPHEN 5-325 MG TABLET PO PRN (21:24)
--- NOTE | 2019-07-14 22:04 | EKG REPORT ---
SEVERITY:- ABNORMAL ECG - SINUS RHYTHM PROBABLE INFERIOR INFARCT, AGE INDETERMINATE LATERAL LEADS ARE ALSO INVOLVED : Confirmed by: Miriam Juarez 14-Jul-2019 22:03:14
[2019-07-15 05:01] LABS: ABSOLUTE BASOPHILS # (AUTO) 0.1 10^3/uL (0.0-0.2); ABSOLUTE EOSINOPHILS # (AUTO) 0.1 10^3/uL (0.0-0.6); ABSOLUTE LYMPHOCYTES (AUTO) 2.4 10^3/uL (0.5-4.7); ABSOLUTE MONOCYTES (AUTO) 0.6 10^3/uL (0.1-1.4); ABSOLUTE NEUT (AUTO) 3.8 10^3/uL (1.7-8.2); BASOPHILS % (AUTO) 0.8 % (0-2); EOSINOPHILS % (AUTO) 1.9 % (0-6); HEMATOCRIT 30.3 % (36.0-47.0); LYMPHOCYTES % (AUTO) 34.9 % (13-45); MEAN CORPUSCULAR HEMOGLOBIN 26.3 pg (27.0-33.4); MEAN CORPUSCULAR VOLUME 80 fl (80-97); MONOCYTES % (AUTO) 8.1 % (3-13); PLATELET COUNT 390 10^3/uL (150-450); RED BLOOD COUNT 3.81 10^6/uL (3.72-5.28); RED CELL DISTRIBUTION WIDTH 14.1 % (11.5-14.0); SEGMENTED NEUTROPHILS % (AUTO) 54.3 % (42-78); TOTAL CELLS COUNTED % (AUTO) 100 %; WHITE BLOOD COUNT 6.9 10^3/uL (4.0-10.5)
[2019-07-15 05:22] LABS: ALBUMIN 2.8 g/dL (3.5-5.0); ALKALINE PHOSPHATASE 90 U/L (38-126); ANION GAP 8 (5-19); ASPARTATE AMINO TRANSFERASE 13 U/L (14-36); BILIRUBIN,DIRECT 0.1 mg/dL (0.0-0.4); BILIRUBIN,TOTAL 0.2 mg/dL (0.2-1.3); BLOOD UREA NITROGEN 21 mg/dL (7-20); CALCIUM 8.7 mg/dL (8.4-10.2); CARBON DIOXIDE 21 mmol/L (22-30); CHLORIDE 111 mmol/L (98-107); GLUCOSE 194 mg/dL (75-110); POTASSIUM 4.7 mmol/L (3.6-5.0); TOTAL PROTEIN 6.5 g/dL (6.3-8.2)
[2019-07-15] MEDS: FAMOTIDINE 20 MG TABLET PO SCH ×2 (05:26→17:15)
[2019-07-15] MEDS: CLINDAMYCIN 300 MG/D5W RTU 300 MG/50 ML RTUPB IV SCH ×3 (05:27→22:01)
[2019-07-15] MEDS: KETOROLAC TROMETHAMINE INJ/PF 30 MG/1 ML SDV IV SCH ×3 (05:31→17:15)
[2019-07-15] MEDS: INSULIN LISPRO 100 UNIT/ML 3 ML VIAL SUBCUT SCH ×3 (07:46→17:15)
[2019-07-15] MEDS: OXYCODONE-ACETAMINOPHEN 5-325 MG TABLET PO PRN ×2 (07:47→19:43)
[2019-07-15] MEDS: DOCUSATE SODIUM 100 MG CAPSULE PO SCH (09:18)
[2019-07-15] MEDS: AMLODIPINE BESYLATE 10 MG TABLET PO SCH (09:18)
[2019-07-15] MEDS: LOSARTAN POTASSIUM 50 MG TABLET PO SCH ×2 (09:18→22:00)
--- NOTE | 2019-07-15 10:38 | PDOC PROGRESS REPORT ---
Subjective Progress Note for:: 07/15/19 Subjective:: No complaints Reason For Visit: RIGHT GREAT TOE INFECTION Physical Exam Vital Signs: Temp Pulse Resp BP Pulse Ox 98.1 F 86 18 159/99 H 98 07/15/19 07:30 07/15/19 07:30 07/15/19 07:30 07/15/19 07:30 07/15/19 07:30 Intake & Output 07/14/19 07/15/19 07/16/19 06:59 06:59 06:59 Intake Total 1862 1660 Balance 1862 1660 Weight 91 kg 96.2 kg General appearance: PRESENT: no acute distress Extremities exam: PRESENT: other - Right foot = wound well healing, no active drainage, edges, Mane drain in place, minimal edema, suture line intact Results Laboratory Results: 07/15/19 04:38 07/15/19 04:38 07/15/19 07/15/19 04:38 04:38 WBC 6.9 RBC 3.81 Hgb 10.0 L Hct 30.3 L MCV 80 MCH 26.3 L MCHC 33.0 RDW 14.1 H Plt Count 390 Seg Neutrophils % 54.3 Sodium 140.1 Potassium 4.7 Chloride 111 H Carbon Dioxide 21 L Anion Gap 8 BUN 21 H Creatinine 1.08 Est GFR ( Amer) > 60 Glucose 194 H Calcium 8.7 Total Bilirubin 0.2 AST 13 L Alkaline Phosphatase 90 Total Protein 6.5 Albumin 2.8 L Impressions: Foot X-Ray 07/12/19 17:45 IMPRESSION: Soft tissue irregularity of the great toe without radiographic findings of acute underlying bone abnormality. Lower Extremity MRI 07/13/19 00:00 IMPRESSION: Osteomyelitis involving the distal phalanx of the great toe. Ov erlying soft tissue ulcer. Assessment & Plan - Diagnosis (1) right great toe infection Is this a current diagnosis for this admission?: Yes (2) Insulin dependent diabetes mellitus Is this a current diagnosis for this admission?: Yes - Time Time Spent with patient: 35 or more minutes - Plan Summary Plan Summary: Assessment: Postoperative day #2 following a right great toe ray amputation Patient doing well Physical exam shows a well-healing right foot wound with intact suture line and no drainage [place] drain removed Plan: Physical therapy evaluation for walker with right knee support to prevent weightbearing on the left foot for 2 months postoperatively Home health evaluation for home nurse to check right foot wound twice a week and replace bandages as done in the hospital (Xeroform on wound, 4 x 4's, ABDs, Kerlix,roll replace splint,and Pepe bandage 6 inch) Patient should go home with a 10-day course of oral antibiotics broad-spectrum (such as Augmentin and clindamycin) Order probiotics 3 times a day as well as yogurt twice a day to prevent C. difficile colitis Follow-up in surgery office with KATHRYN Cesar in 2 weeks Sutures to be removed in 1 month after surgery No bath allowed Patient can shower as long as the right foot is kept dry with a plastic bag or else Bath allowed once the wound is fully healed and the sutures are be removed Follow-up with her PCP in 1 to 2 weeks I will sign off, please call me with questions.
[2019-07-15] MEDS: HYDRALAZINE HCL INJ/PF 20 MG/1 ML SDV IV PRN (13:35)
--- NOTE | 2019-07-15 14:06 | PDOC PROGRESS REPORT ---
Subjective Progress Note for:: 07/15/19 Subjective:: No adverse events overnight. No new complaints. Had a long conversation about dietary changes to help with controlling her diabetes and hyperlipidemia. Reason For Visit: RIGHT GREAT TOE INFECTION Physical Exam Vital Signs: Temp Pulse Resp BP Pulse Ox 98.3 F 89 18 172/76 H 98 07/15/19 11:23 07/15/19 11:23 07/15/19 11:23 07/15/19 11:23 07/15/19 11:23 Intake & Output 07/14/19 07/15/19 07/16/19 06:59 06:59 06:59 Intake Total 1862 1660 330 Balance 1862 1660 330 Weight 91 kg 96.2 kg General appearance: PRESENT: no acute distress, cooperative, morbidly obese Respiratory exam: PRESENT: clear to auscultation burak, symmetrical, unlabored. ABSENT: accessory muscle use, chest wall tenderness, crackles, prolonged expiratory phas, rhonchi, tachypnea, wheezes Cardiovascular exam: PRESENT: RRR, +S1, +S2 Pulses: PRESENT: normal carotid pulses GI/Abdominal exam: PRESENT: normal bowel sounds. ABSENT: distended, guarding, rebound, tenderness Extremities exam: PRESENT: other - Right foot is cleanly dressed with a small amount of shadowing on the bandages. ABSENT: clubbing, pedal edema Musculoskeletal exam: PRESENT: normal inspection. ABSENT: deformity Neurological exam: PRESENT: alert, awake, oriented to person, oriented to place, oriented to situation Psychiatric exam: PRESENT: appropriate affect, normal mood Skin exam: PRESENT: dry, warm Results Laboratory Results: 07/15/19 04:38 07/15/19 04:38 07/15/19 07/15/19 04:38 04:38 WBC 6.9 RBC 3.81 Hgb 10.0 L Hct 30.3 L MCV 80 MCH 26.3 L MCHC 33.0 RDW 14.1 H Plt Count 390 Seg Neutrophils % 54.3 Sodium 140.1 Potassium 4.7 Chloride 111 H Carbon Dioxide 21 L Anion Gap 8 BUN 21 H Creatinine 1.08 Est GFR ( Amer) > 60 Glucose 194 H Calcium 8.7 Total Bilirubin 0.2 AST 13 L Alkaline Phosphatase 90 Total Protein 6.5 Albumin 2.8 L Impressions: Foot X-Ray 07/12/19 17:45 IMPRESSION: Soft tissue irregularity of the great toe without radiographic findings of acute underlying bone abnormality. Lower Extremity MRI 07/13/19 00:00 IMPRESSION: Osteomyelitis involving the distal phalanx of the great toe. Overlying soft tissue ulcer. Assessment and Plan - Diagnosis (1) Hyperlipidemia Is this a current diagnosis for this admission?: Yes Plan: Her Lipitor can be taken at home at the same dose prescribed here (2) Hypertension Is this a current diagnosis for this admission?: Yes Plan: She will continue her home dose of Norvasc, and the new medication of losartan can be taken at the same dose prescribed here (3) Insulin dependent diabetes mellitus Is this a current diagnosis for this admission?: Yes Plan: She can continue her Lantus and metformin at home without changes (4) Obesity Qualifiers: Obesity classification: adult class 1 (BMI 30 - 34.9) Is this a current diagnosis for this admission?: Yes Plan: Strongly encouraged lifestyle modification (5) Osteomyelitis of great toe of right foot Is this a current diagnosis for this admission?: Yes Plan: Management and plan per the primary team - Time Time Spent with patient: 15-24 minutes
[2019-07-15] MEDS ORDERED: INSULIN GLARGINE,HUM.REC.ANLOG 1,000 UNIT/10 ML VIAL SUBCUT SCH (22:00)
[2019-07-15] MEDS: ATORVASTATIN CALCIUM 40 MG TABLET PO SCH (22:00)
[2019-07-16] MEDS: KETOROLAC TROMETHAMINE INJ/PF 30 MG/1 ML SDV IV SCH ×2 (00:47→05:19)
[2019-07-16] MEDS: CLINDAMYCIN 300 MG/D5W RTU 300 MG/50 ML RTUPB IV SCH (05:14)
[2019-07-16] MEDS: FAMOTIDINE 20 MG TABLET PO SCH (05:15)
--- NOTE | 2019-07-16 07:42 | PDOC PROGRESS REPORT ---
Subjective Progress Note for:: 07/16/19 Subjective:: Patient comfortable Reason For Visit: RIGHT GREAT TOE INFECTION Physical Exam Vital Signs: Temp Pulse Resp BP Pulse Ox 98.3 F 100 18 147/73 H 96 07/16/19 02:33 07/16/19 02:33 07/16/19 02:33 07/16/19 02:33 07/16/19 02:33 Intake & Output 07/15/19 07/16/19 07/17/19 06:59 06:59 06:59 Intake Total 1660 840 Balance 1660 840 Weight 96.2 kg 95.4 kg General appearance: PRESENT: no acute distress Extremities exam: PRESENT: other - Right foot = dressings clean dry intact Results Laboratory Results: 07/15/19 04:38 07/15/19 04:38 Impressions: Foot X-Ray 07/12/19 17:45 IMPRESSION: Soft tissue irregularity of the great toe without radiographic findings of acute underlying bone abnormality. Lower Extremity MRI 07/13/19 00:00 IMPRESSION: Osteomyelitis involving the distal phalanx of the great toe. Overlying soft tissue ulcer. Assessment & Plan - Diagnosis (1) right great toe infection Is this a current diagnosis for this admission?: Yes (2) Insulin dependent diabetes mellitus Is this a current diagnosis for this admission?: Yes - Time Time Spent with patient: 25-34 minutes - Plan Summary Plan Summary: Assessment: Postoperative day #3 following right great toe ray amputation Wound well healing No other active issues Plan: Home today Physical therapy to evaluate the patient prior to discharge for ambulation with walker and right leg support to prevent right lower extremity weight bearing Home health visit twice a week for dressing changes Follow-up in the office in 2 weeks with KATHRYN Mooney Augmentin 875 mg p.o. twice daily for 7 days Clindamycin 600 mg p.o. 3 times daily for 7 days Yogurt 1 cup twice a day Probiotics 2 tabs p.o. 3 times a day while on antibiotics Sponge bath only until the sutures are in place
[2019-07-16] MEDS: HYDRALAZINE HCL INJ/PF 20 MG/1 ML SDV IV PRN (07:50)
[2019-07-16] MEDS: INSULIN LISPRO 100 UNIT/ML 3 ML VIAL SUBCUT SCH (07:51)
--- NOTE | 2019-07-16 08:10 | Discharge Summary ---
Discharge Summary (SDC) - Discharge Final Diagnosis: Right great toe distal phalanx osteomyelitis Date of Surgery: 07/13/19 Condition: Stable Treatment or Instructions: Home health visit twice a week for dressing changes Follow-up in the office in 2 weeks with KATHRYN Mooney Augmentin 875 mg p.o. twice daily for 7 days Clindamycin 600 mg p.o. 3 times daily for 7 days Yogurt 1 cup twice a day Probiotics 2 tabs p.o. 3 times a day while on antibiotics Sponge bath only until the sutures are in place No weight bearing on the right foot for 2 months Prescriptions: Amox Tr/Potassium Clavulanate [Augmentin 875-125 mg Tablet] 1 tab PO BID #20 tablet Clindamycin HCl [Cleocin 150 mg Capsule] 150 mg PO TID #30 capsule Losartan Potassium [Cozaar 50 mg Tablet] 50 mg PO Q12 #120 tablet Referrals: BELEN FENG MD [ACTIVE STAFF] - (see Tasia) JANI FARIA MD [Primary Care Provider] - Follow up as needed Discharge Activity: Activity As Tolerated, No tub bath Home Care Assistance: None Needed, Provided by Family, Home Health - Twice a week dressing changes of right great toe site wound Adaptive Devices on Discharge: Standard Walker Report the Following to Your Physician Immediately: Increase in Pain, Swelling, Warmth, Drainage-Yellow Provider Note Provider Note: The patient is a 73-year-old morbidly obese, type II diabetic, female with hypertension, who presented to the emergency room with swelling and pain of the right great toe following trimming of the nails. The patient was taken to surgery on July 13, 2019 and underwent a right great toe the amputation because of osteomyelitis identified in the right great toe distal phalanx on MRI. The procedure was uneventful. Her postop course was uneventful the right great toe site amputation wound was clean, dry, and intact: Blood work was within the normal limit. On the day of discharge the patient had stable vital signs, she was afebrile, the right great toe site wound was clean, dry and intact. She was discharged to home on July 16, 2019 follow-up appointment with the surgical office in 2 weeks: Home health nurse to check on the wound twice a week, ambulation allowed with no weightbearing on the right lower extremity by using a walker with platform. Wound bath only the patient was sent home with her preadmission home medications. In addition she was given Augmentin 875 mg by mouth twice a days for 10 days and clindamycin 150 mg 3 times a day for 10 days. She is instructed to perform sponge bath only
[2019-07-16] MEDS: LOSARTAN POTASSIUM 50 MG TABLET PO SCH (09:09)
[2019-07-16] MEDS: DOCUSATE SODIUM 100 MG CAPSULE PO SCH (09:09)
[2019-07-16] MEDS: AMLODIPINE BESYLATE 10 MG TABLET PO SCH (09:09)
[2019-07-16 11:50] VITALS: BP 126/73
== END 2019-07-16 12:37 | disposition home health service (06) | DRG 256 ==
LOC: ER 16:28 → EH 22:02 → 3S 07-13 00:55 → OBSVTOIN 07-13 12:56
PROVIDERS: ADMIT Surgery; ATTEND Surgery
PROC: 0Y6P0Z3 Detachment at Right 1st Toe, Low, Open Approach (ICD-10-PCS; principal; 2019-07-13 14:30)
DX: E11.52 Type 2 diabetes mellitus with diabetic peripheral angiopathy with gangrene (principal); I96 Gangrene, not elsewhere classified; M86.171 Other acute osteomyelitis, right ankle and foot; E11.69 Type 2 diabetes mellitus with other specified complication; I10 Essential (primary) hypertension; E78.5 Hyperlipidemia, unspecified; E66.01 Morbid (severe) obesity due to excess calories; Z79.4 Long term (current) use of insulin; Z79.899 Other long term (current) drug therapy; Z68.35 Body mass index [BMI] 35.0-35.9, adult; Z82.49 Family history of ischemic heart disease and other diseases of the circulatory system; Z79.891 Long term (current) use of opiate analgesic
CPT/HCPCS: 01480; 36415; 80048; 80053; 80061; 82962; 83036; 84443; 85025; 87040; 88305; 88311; 93005; 93010; 96365; 96367; 96375; 99285; G0378; J0131; J0360; J0696; J1815; J1885; J2250; J2405; J2704; J3010; J3490; J7030; S0028

== ENCOUNTER → 2019-08-14 | Outpatient (CLI) | payer MEDICARE ==
[2019-08-14 11:30] LABS: ABSOLUTE BASOPHILS # (AUTO) 0.1 10^3/uL (0.0-0.2); ABSOLUTE EOSINOPHILS # (AUTO) 0.1 10^3/uL (0.0-0.6); ABSOLUTE LYMPHOCYTES (AUTO) 2.2 10^3/uL (0.5-4.7); ABSOLUTE MONOCYTES (AUTO) 0.4 10^3/uL (0.1-1.4); ABSOLUTE NEUT (AUTO) 3.8 10^3/uL (1.7-8.2); EOSINOPHILS % (AUTO) 1.7 % (0-6); HEMATOCRIT 35.1 % (36.0-47.0); HEMOGLOBIN 11.6 g/dL (12.0-15.5); LYMPHOCYTES % (AUTO) 33.1 % (13-45); MEAN CORPUSCULAR HEMOGLOBIN 26.1 pg (27.0-33.4); MEAN CORPUSCULAR VOLUME 79 fl (80-97); MONOCYTES % (AUTO) 5.8 % (3-13); PLATELET COUNT 369 10^3/uL (150-450); RED BLOOD COUNT 4.44 10^6/uL (3.72-5.28); SEGMENTED NEUTROPHILS % (AUTO) 58.4 % (42-78); TOTAL CELLS COUNTED % (AUTO) 100 %; WHITE BLOOD COUNT 6.6 10^3/uL (4.0-10.5)
[2019-08-14 11:52] LABS: ALBUMIN 3.6 g/dL (3.5-5.0); ALKALINE PHOSPHATASE 113 U/L (38-126); ANION GAP 12 (5-19); ASPARTATE AMINO TRANSFERASE 15 U/L (14-36); BILIRUBIN,DIRECT 0.1 mg/dL (0.0-0.4); BILIRUBIN,TOTAL 0.4 mg/dL (0.2-1.3); BLOOD UREA NITROGEN 19 mg/dL (7-20); C-REACTIVE PROTEIN 10.1 mg/L (<10.0); CALCIUM 9.7 mg/dL (8.4-10.2); CARBON DIOXIDE 22 mmol/L (22-30); CHLORIDE 106 mmol/L (98-107); GLUCOSE 218 mg/dL (75-110); POTASSIUM 4.7 mmol/L (3.6-5.0); TOTAL PROTEIN 7.8 g/dL (6.3-8.2)
[2019-08-14 12:02] LABS: ERYTHROCYTE SEDIMENTATION RATE 105 mm/hr (0-30)
--- NOTE | 2019-08-14 12:03 | RADIOLOGY REPORT (SQ) ---
EXAM DESCRIPTION: CHEST PA/LATERAL COMPLETED DATE/TIME: 08/14/2019 11:38 am REASON FOR STUDY: CHRONIC ULCER OF PART OF RIGHT FOOT COMPARISON: None. EXAM PARAMETERS: NUMBER OF VIEWS: two views TECHNIQUE: Digital Frontal and Lateral radiographic views of the chest acquired. RADIATION DOSE: NA LIMITATIONS: none FINDINGS: LUNGS AND PLEURA: No opacities, masses or pneumothorax. No pleural effusion. MEDIASTINUM AND HILAR STRUCTURES: No masses or contour abnormalities. HEART AND VASCULAR STRUCTURES: Heart normal size. No evidence for failure. BONES: No acute findings. HARDWARE: None in the chest. OTHER: Multiple soft tissue calcifications overlie both breasts. IMPRESSION: No evidence of acute cardiopulmonary process. Multiple coarse calcifications overlie bilateral breasts. Recommend correlation with mammographic hi story. TECHNICAL DOCUMENTATION: JOB ID: [id number] [employer]- All Rights Reserved Reading location - IP/workstation name: [email or web address]
--- NOTE | 2019-08-14 12:20 | RADIOLOGY REPORT (SQ) ---
EXAM DESCRIPTION: FOOT RIGHT COMPLETE COMPLETED DATE/TIME: 08/14/2019 11:38 am REASON FOR STUDY: CHRONIC ULCER OF PART OF RIGHT FOOT L97.514 NON-PRS CHRONIC ULCER OTH PRT RIGHT F OOT W NECROSIS J93.9 PNEUMOTHORAX, UNSPECIFIED E11.621 TYPE 2 DIABETES MELLITUS WITH FOOT ULCER COMPARISON: 07/12/2019 NUMBER OF VIEWS: Three views. TECHNIQUE: AP, lateral and oblique radiographic images acquired of the right foot. LIMITATIONS: None. FINDINGS: MINERALIZATION: Decreased. BONES: Postsurgical changes from the 1st phalangeal amputation. No definite acute bony abnormality. Scattered degenerative changes at the additional interphalangeal joints. JOINTS: No dislocation. Mild midfoot degenerative change. SOFT TISSUES: Soft tissue swelling about the forefoot. Vascular calcifications. OTHER: No other significant finding. IMPRESSION: Postsurgical change from the 1st digit amputation without definite acute bony abnormalit y or definitive radiographic findings of osteomyelitis. Soft tissue swelling about the forefoot. TECHNICAL DOCUMENTATION: JOB ID: [id number] [employer]- All Rights Reserved Reading location - IP/workstation name: [email or web address]
== END ==
LOC: WC 10:35
PROVIDERS: ATTEND Nurse Practitioner Family
DX: E11.621 Type 2 diabetes mellitus with foot ulcer (principal); L97.514 Non-pressure chronic ulcer of other part of right foot with necrosis of bone; J93.9 Pneumothorax, unspecified
CPT/HCPCS: 36415; 71046; 80053; 83036; 85025; 85652; 86140

== ENCOUNTER 2019-09-03 13:57 | Inpatient (IN) | payer MEDICARE ==
--- NOTE | 2019-09-03 15:50 | ER Document Report ---
ED Medical Screen (RME) - General Chief Complaint: Foot Pain Stated Complaint: RIGHT FOOT PAIN Time Seen by Provider: 09/03/19 15:42 Primary Care Provider: QUINN CARRINGTON NP, INSTRUCTIONAL SUPPORT SERVICES DIRECTOR [Primary Care Provider] - Follow up as needed Mode of Arrival: Wheelchair Information source: Patient Notes: This 74-year-old female history of diabetes with recent amputation of her right great toe in July presents to the emergency department with reports of the amputated area has a foul smell and is not looking like it is healing. She reports her home health nurse sent her here. She reports she did have a wound VAC to the area. She denies fever vomiting diarrhea. I have greeted and performed a rapid initial assessment of this patient. A comprehensive ED assessment and evaluation of the patient, analysis of test results and completion of the medical decision making process will be conducted by additional ED providers. TRAVEL OUTSIDE OF THE [place] IN LAST 30 DAYS: No - Related Data Allergies/Adverse Reactions: No Known Allergies Allergy (Verified 09/03/19 15:41) Past Medical History - Past Medical History Cardiac Medical History: Reports: Hx Hypertension Endocrine Medical History: Reports: Hx Diabetes Mellitus Type 1, Hx Diabetes Mellitus Type 2 - Insulin-dependent Psychiatric Medical History: Denies: Hx Depression Past Surgical History: Reports: Hx Hysterectomy - Immunizations Hx Diphtheria, Pertussis, Tetanus Vaccination: Yes Physical Exam - Vital signs Vitals: Temp Pulse Resp BP Pulse Ox 98.4 F 91 16 146/69 H 96 09/03/19 14:26 09/03/19 14:26 09/03/19 14:26 09/03/19 14:26 09/03/19 14:26 Course - Vital Signs Vital signs: Temp Pulse Resp BP Pulse Ox 98.4 F 91 16 146/69 H 96 09/03/19 14:26 09/03/19 14:26 09/03/19 14:26 09/03/19 14:26 09/03/19 14:26 Doctor's Discharge - Discharge Referrals: QUINN CARRINGTON NP, INSTRUCTIONAL SUPPORT SERVICES DIRECTOR [Primary Care Provider] - Follow up as needed
[2019-09-03 16:36] LABS: ABSOLUTE BASOPHILS # (AUTO) 0.1 10^3/uL (0.0-0.2); ABSOLUTE LYMPHOCYTES (AUTO) 1.7 10^3/uL (0.5-4.7); ABSOLUTE MONOCYTES (AUTO) 0.3 10^3/uL (0.1-1.4); ABSOLUTE NEUT (AUTO) 6.3 10^3/uL (1.7-8.2); BASOPHILS % (AUTO) 0.7 % (0-2); EOSINOPHILS % (AUTO) 0.5 % (0-6); HEMATOCRIT 34.7 % (36.0-47.0); HEMOGLOBIN 11.2 g/dL (12.0-15.5); LYMPHOCYTES % (AUTO) 20.6 % (13-45); MEAN CORPUSCULAR HEMOGLOBIN 25.9 pg (27.0-33.4); MEAN CORPUSCULAR HGB CONC 32.4 g/dL (32.0-36.0); MEAN CORPUSCULAR VOLUME 80 fl (80-97); MONOCYTES % (AUTO) 4.1 % (3-13); PLATELET COUNT 445 10^3/uL (150-450); RED BLOOD COUNT 4.34 10^6/uL (3.72-5.28); RED CELL DISTRIBUTION WIDTH 15.7 % (11.5-14.0); SEGMENTED NEUTROPHILS % (AUTO) 74.1 % (42-78); TOTAL CELLS COUNTED % (AUTO) 100 %; WHITE BLOOD COUNT 8.4 10^3/uL (4.0-10.5)
--- NOTE | 2019-09-03 16:45 | RADIOLOGY REPORT (SQ) ---
EXAM DESCRIPTION: FOOT RIGHT 2 VIEWS COMPLETED DATE/TIME: 09/03/2019 4:36 pm REASON FOR STUDY: amputated area, worsening COMPARISON: None. NUMBER OF VIEWS: Three views. TECHNIQUE: AP, lateral and oblique radiographic images acquired of the right foot. LIMITATIONS: None. FINDINGS: MINERALIZATION: Normal. BONES: Amputation of the 1st digit. JOINTS: No effusions. SOFT TISSUES: There is now an area of decreased attenuation distal to the amputation site. OTHER: No other significant finding. IMPRESSION: Cannot exclude an abscess in the soft tissues distal to the amputation site. TECHNICAL DOCUMENTATION: JOB ID: [id number] [employer]- All Rights Reserved Reading location - IP/workstation name: [email or web address]
[2019-09-03 16:55] LABS: ALBUMIN 3.8 g/dL (3.5-5.0); ALKALINE PHOSPHATASE 107 U/L (38-126); ANION GAP 15 (5-19); ASPARTATE AMINO TRANSFERASE 23 U/L (14-36); BILIRUBIN,DIRECT 0.4 mg/dL (0.0-0.4); BILIRUBIN,TOTAL 0.5 mg/dL (0.2-1.3); BLOOD UREA NITROGEN 25 mg/dL (7-20); CALCIUM 9.8 mg/dL (8.4-10.2); CARBON DIOXIDE 22 mmol/L (22-30); CHLORIDE 107 mmol/L (98-107); GLUCOSE 184 mg/dL (75-110); POTASSIUM 4.6 mmol/L (3.6-5.0); TOTAL PROTEIN 8.4 g/dL (6.3-8.2)
--- NOTE | 2019-09-03 17:01 | ER Document Report ---
ED Extremity Problem, Lower - General Chief Complaint: Wound Recheck Stated Complaint: RIGHT FOOT PAIN Time Seen by Provider: 09/03/19 15:42 Mode of Arrival: Wheelchair Notes: Patient is a 74-year-old female who presents to the emergency department with a chief complaint of a foul-smelling wound from her amputation site. Patient states that they noticed the foul smell this morning. The home health nurse was at the house and when they took off the wound VAC that was to the area, they smelled a foul smell. They referred here to the emergency department. Patient denies any fevers. Patient was recently on antibiotics for an infected tooth. TRAVEL OUTSIDE OF THE [place] IN LAST 30 DAYS: No - Related Data Allergies/Adverse Reactions: No Known Allergies Allergy (Verified 09/03/19 15:41) Past Medical History - General Information source: Patient - Social History Smoking Status: Former Smoker Family History: Reviewed & Not Pertinent Patient has suicidal ideation: No Patient has homicidal ideation: No - Past Medical History Cardiac Medical History: Reports: Hx Hypertension Endocrine Medical History: Reports: Hx Diabetes Mellitus Type 1, Hx Diabetes Mellitus Type 2 - Insulin-dependent Psychiatric Medical History: Denies: Hx Depression Past Surgical History: Reports: Hx Hysterectomy - Immunizations Hx Diphtheria, Pertussis, Tetanus Vaccination: Yes Review of Systems - Review of Systems Notes: REVIEW OF SYSTEMS: CONSTITUTIONAL : Denies recent illness. Denies recent unintentional weight loss. Denies fever, chills, or sweats. EENT: Denies eye, ear, throat, or mouth pain, discharge, or symptoms. Denies nasal or sinus congestion. CARDIOVASCULAR: Denies chest pain. RESPIRATORY: Denies shortness of breath, cough, congestion, difficulty breathing, or wheezing. GASTROINTESTINAL: Denies nausea, vomiting, and diarrhea. Denies abdominal pain. Denies constipation. GENITOURINARY: Denies difficulty urinating, burning, blood in urine, urgency or frequency. MUSCULOSKELETAL: See HPI SKIN: See HPI HEMATOLOGIC : Denies easy bruising or bleeding. LYMPHATIC: Denies swollen, painful, enlarged glands. NEUROLOGICAL: Denies no numbness or tingling denies weakness. Denies headache. Denies altered mental status. Denies alteration in speech. PSYCHIATRIC: Denies stress, anxiety, alteration in sleep patterns, or depres sarah. All other systems reviewed and negative. Physical Exam - Vital signs Vitals: Temp Pulse Resp BP Pulse Ox 98.4 F 91 16 146/69 H 96 09/03/19 14:26 09/03/19 14:26 09/03/19 14:26 09/03/19 14:26 09/03/19 14:26 - Notes Notes: PHYSICAL EXAMINATION: GENERAL: Appears well, healthy, well-nourished, no acute distress. HEAD: Normocephalic, atraumatic. EYES: PERRL, conjunctiva normal, all extraocular movements intact, sclera nonicteric ENT: Moist mucous membranes. NECK: Supple, no noticeable swelling, redness, rash. Normal range of motion. LUNGS: Equal breath sounds bilaterally and clear to auscultation. No wheezes rales or rhonchi. CARDIOVASCULAR: S1-S2, regular rate, regular rhythm. Radial pulses 2+, normal. Dorsalis pedis and posterior pedal pulses 1+. Confirmed pulses with doppler. ABDOMEN: Normoactive bowel sounds. Soft, nontender, no guarding, no rebound tenderness, and no masses palpated. EXTREMITIES: Pungent foul smelling wound with purulent drainage noted to previous right great toe area. NEUROLOGICAL: Moves all extremities upon command. Strength 5/5 in all extremities. PSYCH: Normal mood, normal affect. SKIN: Warm, dry. Normal skin turgor. See Extremities exam Course - Re-evaluation Re-evalutation: 09/03/19 17:19 X-ray ordered in triage shows a possible abcess. Discussed this case with Dr. Morse. Due to the patient having a very foul-smelling, pungent smell, there is concern for osteomyelitis. She is in agreement for the patient to have an MRI instead of CT. 09/03/19 22:14 Patient's hematology shows anemia. No leukocytosis noted. Her chemistries show a mildly elevated BUN. Protein is also high. She received fluids here in the emergency department. MRI shows that there is possible osteomyelitis of the location. There is no abscess noted, but there is also superimposed myositis noted. Vancomycin and aztreonam here in the emergency department. Blood cultures were sent. I spoke with Dr. Ponce, the surgeon auctioneer automobile he will come to evaluate the patient. I also spoke with Dr. Forman, the Hospitalist. The patient will be admitted to the surgical floor. 09/03/19 22:55 Dr. Ponce came to bedside evaluated the patient. He would like Betadine, lidocaine, and a 25-gauge needle at bedside. - Vital Signs Vital signs: Temp Pulse Resp BP Pulse Ox 98.1 F 96 18 176/79 H 100 09/05/19 08:27 09/05/19 08:27 09/05/19 08:27 09/05/19 08:27 09/05/19 08:27 - Laboratory Result Diagrams: 09/05/19 06:28 09/04/19 05:35 Laboratory results interpreted by me: 09/03/19 09/03/19 16:14 16:14 Hgb 11.2 L Hct 34.7 L MCH 25.9 L RDW 15.7 H BUN 25 H Est GFR (MDRD) Non-Af 49 L Glucose 184 H Total Protein 8.4 H Critical Care Note - Critical Care Note Total time excluding time spent on procedures (mins): 35 Comments: Critical care time spent obtaining history from patient or surrogate, discussions with consultants, development of treatment plan with patient or s urrogate, evaluation of patient's response to treatment, examination of patient, ordering and performing treatments and interventions, ordering and review of laboratory studies, re-evaluation of patient's condition, ordering and review of radiographic studies and review of old charts Discharge - Discharge Clinical Impression: Osteomyelitis Qualifiers: Osteomyelitis type: unspecified type Osteomyelitis location: foot Laterality: right Qualified Code(s): M86.9 - Osteomyelitis, unspecified Condition: Stable Disposition: ADMITTED INPATIENT Admitting Provider: Dasia (Hospitalist) Unit Admitted: Surgical Floor
[2019-09-03] MEDS ORDERED: AZTREONAM INJ 1 GM VIAL IV ONE (17:16)
[2019-09-03] MEDS ORDERED: VANCOMYCIN HCL INJ 1000 MG VIAL IV ONE (17:16)
[2019-09-03] MEDS ORDERED: NORMAL SALINE 1000 ML 1,000 ML IV ONE (17:21)
--- NOTE | 2019-09-03 21:12 | RADIOLOGY REPORT (SQ) ---
EXAM DESCRIPTION: MR LOWER EXTREMITY WITHOUT THEN WITH IV CONTRAST COMPLETED DATE/TME: 09/03/2019 17:19 CLINICAL HISTORY: 74 years, Female, right foot wound; possible abcess or osteomylitis? COMPARISON: Prior plain radiographs of the right foot performed earlier the same day TECHNIQUE: Multiplanar, multisequence MR images of the right foot were obtained both prior to and after the uneventful administration of intravenous contrast. Images stored on PACS. LIMITATIONS: None. FINDINGS: Visualized are postoperative changes of amputation of the first digit at the level of the MTP joint. Likewise, the first metatarsal head appears partially resected as well. Mild edema signal is noted about the residua of the first metatarsal head with concomitant diminished T1 signal. Likewise, there is concomitant mild circumferential edema signal located about the second metatarsal head with concomitant diminished T1 signal. This appears to extend into the second proximal phalangeal base as well. Similar findings are noted about the third metatarsal head. There is associated edema signal located within the soft tissues of the plantar and dorsal surfaces of the forefoot, especially the extensor and flexor musculature. Associated enhancement is noted about the flexor and extensor musculature. No well-demarcated drainable fluid collection is clearly identified about the visualized portions of the right foot. IMPRESSION: Postsurgical changes of a dictation of the first digit at the level of the MTP joint. Likewise, the first metatarsal head appears at least partially resected as well. However, there are signal changes within the residua of the first metatarsal head, raising the possibility of residual osteomyelitis at this location. Similar circumferential edema/enhancement is noted about the second and third metatarsal heads as well as the second proximal phalangeal base, either reactive or related to additional foci of infection/osteomyelitis. Superimposed edema and enhancement about the extensor and flexor musculature of the forefoot, indicative of superimposed myositis. No clear evidence of a drainable abscess. copyright 2010 [employer]- All Rights Reserved
[2019-09-03] MEDS ORDERED: ACETAMINOPHEN 325 MG TABLET PO ONE (22:27)
[2019-09-03] MEDS ORDERED: ONDANSETRON HCL INJ/PF 4 MG/2 ML SDV IV PRN (22:50)
[2019-09-03] MEDS ORDERED: MORPHINE SULFATE 10 MG/ML INJ IV PRN ×3 (22:55)
[2019-09-03] MEDS ORDERED: ACETAMINOPHEN 650 MG SUPP.RECT PR PRN (22:55)
[2019-09-03] MEDS ORDERED: GLUCAGON,HUMAN RECOMB 1 MG INJ IM PRN (22:56)
[2019-09-03] MEDS ORDERED: DEXTROSE 40% GEL 15 GM TUBE PO PRN ×2 (22:56)
[2019-09-03] MEDS ORDERED: LIDOCAINE 1% INJ-PF (10 MG/ML) 30 ML SDV INJ ONE (22:56)
[2019-09-03] MEDS ORDERED: DEXTROSE 50%-WATER 25 GM/50 ML DISP.SYRIN IV PRN ×2 (22:56)
[2019-09-03] MEDS ORDERED: VANCOMYCIN HCL INJ 1000 MG VIAL IV SCH (23:00)
[2019-09-03] MEDS ORDERED: MEROPENEM 1 GM VIAL IV PRN (23:00)
[2019-09-03] MEDS ORDERED: MEROPENEM 1 GM in NORMAL SALINE 50 ML IV ONE (23:59)
[2019-09-04] MEDS: FAMOTIDINE INJ/PF 20 MG/2 ML SDV IV SCH ×3 (00:23→22:43)
[2019-09-04] MEDS: RINGERS SOLUTION,LACTATED 1,000 ML IV PRN ×2 (01:10→07:48)
[2019-09-04 05:44] LABS: HEMATOCRIT 30.2 % (36.0-47.0); HEMOGLOBIN 9.9 g/dL (12.0-15.5); MEAN CORPUSCULAR HEMOGLOBIN 25.9 pg (27.0-33.4); MEAN CORPUSCULAR HGB CONC 32.8 g/dL (32.0-36.0); MEAN CORPUSCULAR VOLUME 79 fl (80-97); PLATELET COUNT 417 10^3/uL (150-450); RED BLOOD COUNT 3.83 10^6/uL (3.72-5.28); RED CELL DISTRIBUTION WIDTH 15.2 % (11.5-14.0); WHITE BLOOD COUNT 7.4 10^3/uL (4.0-10.5)
[2019-09-04] MEDS ORDERED: MEROPENEM 1 GM VIAL ONE (05:49)
[2019-09-04] MEDS: MEROPENEM 1 GM in NORMAL SALINE 50 ML IV SCH ×3 (06:00→22:50)
[2019-09-04] MEDS: HEPARIN SOD (PORCINE) 5,000 UNIT/ML 1 ML VIAL SUBCUT SCH ×3 (06:01→22:41)
[2019-09-04 06:16] LABS: ANION GAP 8 (5-19); BLOOD UREA NITROGEN 18 mg/dL (7-20); CALCIUM 9.1 mg/dL (8.4-10.2); CARBON DIOXIDE 24 mmol/L (22-30); CHLORIDE 111 mmol/L (98-107); GLUCOSE 212 mg/dL (75-110); POTASSIUM 4.3 mmol/L (3.6-5.0)
[2019-09-04] MEDS: INSULIN REG, HUMAN 100 UNIT/ML 3 ML VIAL (PYX) SUBCUT PRN ×2 (06:26→22:43)
--- NOTE | 2019-09-04 06:32 | PDOC H&P ---
History of Present Illness Admission Date/PCP: 09/03/2019 22:32 JANI FARIA MD Patient complains of: Right foot wound drainage History of Present Illness: SMITA BAEZ is a 74 year old female who presented to the emergency room with drainage from her right foot wound amputation site. Patient admits that she had an amputation of her right great toe on 08/20/2019 and since that time t he surgical site has been treated with a wound VAC. Her home health nurse came to her house today and remove the wound VAC from the site and noted a extremely foul-smelling purulent discharge from her wound. She subsequently came to the hospital for further evaluation and treatment. She denies associated or accompanying signs and symptoms. She denies prior similar episodes. She has not identified any other aggravating or ameliorating factors for her right foot wound drainage. In the emergency room she was found to have persistent osteomyelitis in the right first metatarsal head on an MRI performed today. Dr. Ponce is been consulted by the emergency room physician and he asked that the hospitalist service admit this patient and consult him for surgical treatment. Past Medical History Cardiac Medical History: Reports: Hypertension Denies: Coronary Artery Disease, Myocardial Infarction Pulmonary Medical History: Denies: Asthma, Chronic Obstructive Pulmonary Disease (COPD) EENT Medical History: Reports: Eyes - Extremely poor vision Denies: Ears - Hearing aids Neurological Medical History: Denies: Hemorrhagic CVA, Ischemic CVA, Seizures Endocrine Medical History: Reports: Diabetes Mellitus Type 2, Obesity Denies: Diabetes Mellitus Type 1, Hyperthyroidism, Hypothyroidism Renal/ Medical History: Denies: Chronic Kidney Disease, Nephrolithiasis Malignancy Medical History: Reports: None GI Medical History: Denies: Cirrhosis, Hepatitis Musculoskeltal Medical History: Denies: Arthritis, Gout Skin Medical History: Denies: Eczema, Psoriasis Psychiatric Medical History: Denies: Alcohol Dependency, Depression, Substance Abuse, Tobacco Dependency Traumatic Medical History: Reports: None Hematology: Reports: Anemia - Chronic Denies: Bleeding Tendencies Infectious Medical History: Reports: None Past Surgical History Past Surgical History: Reports: Hysterectomy, Other - Amputation of right great toe 08/20/2019 Social History Information Source: Patient Lives with: Spouse/Significant other Smoking Status: Former Smoker Electronic Cigarette use?: No Frequency of Alcohol Use: None Hx Recreational Drug Use: No Drugs: None Hx Prescription Drug Abuse: No - Advance Directive Resuscitation Status: Full Code Surrogate healthcare decision maker:: Charo Baez Family History Family History: DM, Hypertension. denies: CAD, Malignancy Parental Family History Reviewed: Yes Children Family History Reviewed: No Sibling(s) Family History Reviewed.: Yes Medication/Allergy Home Medications: Amlodipine Besylate [Norvasc 10 mg Tablet] 10 mg PO DAILY 07/13/19 Insulin Glargine,Hum.rec.anlog [Lantus Insulin 100 Unit/1 ml 10 ml] 25 unit SUBCUT QHS 07/13/19 Metformin HCl [Glucophage 500 mg Tablet] 500 mg PO BID 07/13/19 Amlodipine Besylate [Norvasc 10 mg Tablet] 10 mg PO DAILY tablet 07/16/19 Amox Tr/Potassium Clavulanate [Augmentin 875-125 mg Tablet] 1 tab PO BID #20 tablet 07/16/19 Clindamycin HCl [Cleocin 150 mg Capsule] 150 mg PO TID #30 capsule 07/16/19 Losartan Potassium [Cozaar 50 mg Tablet] 50 mg PO Q12 #120 tablet 07/16/19 Allergies/Adverse Reactions: No Known Allergies Allergy (Verified 09/03/19 15:41) Review of Systems Constitutional: ABSENT: chills, fever(s) Eyes: ABSENT: visual disturbances, other - Eye pain Ears: ABSENT: hearing changes, other - Ear pain Nose, Mouth, and Throat: PRESENT: mouth pain - Recent tooth ache, took prescribed antibiotic. ABSENT: headache(s), sore throat Cardiovascular: ABSENT: chest pain, palpitations Respiratory: ABSENT: cough, dyspnea Gastrointestinal: ABSENT: abdominal pain, constipation, diarrhea, nausea, vomiting Genitourinary: ABSENT: dysuria, hematuria Musculoskeletal: ABSENT: back pain, joint swelling, muscle weakness Integumentary: ABSENT: pruritus, rash Neurological: ABSENT: confusion, convulsions, focal weakness, memory loss, syncope Psychiatric: ABSENT: anxiety, depression Endocrine: ABSENT: cold intolerance, heat intolerance Hematologic/Lymphatic: ABSENT: easy bleeding, easy bruising Allergic/Immunologic: ABSENT: seasonal rhinorrhea Physical Exam Vital Signs: Temp Pulse Resp BP Pulse Ox 98.2 F 89 20 161/83 H 98 09/03/19 21:12 09/03/19 21:12 09/03/19 21:12 09/03/19 21:12 09/03/19 21:12 Intake & Output 09/01/19 09/02/19 09/03/19 23:59 23:59 23:59 Intake Total 1000 Balance 1000 Weight 90.6 kg General appearance: PRESENT: no acute distress, cooperative, obese Head exam: PRESENT: atraumatic, normocephalic Eye exam: PRESENT: conjunctiva pink, other - 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 ABSENT: conjunctival injection, scleral icterus Ear exam: PRESENT: normal external ear exam. ABSENT: bleeding, drainage Mouth exam: PRESENT: dry mucosa, neck supple Neck exam: ABSENT: thyromegaly, tracheal deviation Respiratory exam: PRESENT: clear to auscultation burak, symmetrical, unlabored Cardiovascular exam: PRESENT: RRR. ABSENT: clicks, gallop, rubs Pulses: PRESENT: normal radial pulses, normal dorsalis pedis pul Vascular exam: PRESENT: normal capillary refill. ABSENT: pallor GI/Abdominal exam: PRESENT: normal bowel sounds, soft Rectal exam: PRESENT: deferred Extremities exam: PRESENT: other - Right great toe amputation site with foul- smelling purulent drainage. ABSENT: joint swelling, pedal edema Musculoskeletal exam: ABSENT: deformity, dislocation Neurological exam: PRESENT: alert, oriented to person, oriented to place, oriented to time, oriented to situation Psychiatric exam: PRESENT: appropriate affect, normal mood Skin exam: PRESENT: dry, intact, warm. ABSENT: jaundice, rash, urticaria Results Laboratory Results: 09/03/19 16:14 09/03/19 16:14 09/03/19 09/03/19 09/03/19 16:14 16:14 18:25 WBC 8.4 RBC 4.34 Hgb 11.2 L Hct 34.7 L MCV 80 MCH 25.9 L MCHC 32.4 RDW 15.7 H Plt Count 445 Seg Neutrophils % 74.1 Sodium 143.9 Potassium 4.6 Chloride 107 Carbon Dioxide 22 Anion Gap 15 BUN 25 H Creatinine 1.09 Est GFR ( Amer) > 60 Glucose 184 H Lactic Acid 1.8 Calcium 9.8 Total Bilirubin 0.5 AST 23 Alkaline Phosphatase 107 Total Protein 8.4 H Albumin 3.8 Impressions: Foot X-Ray 09/03/19 15:50 IMPRESSION: Cannot exclude an abscess in the soft tissues distal to the amputation site. Lower Extremity MRI 09/03/19 17:19 IMPRESSION: Postsurgical changes of a dictation of the first digit at the level of the MTP joint. Likewise, the first metatarsal head appears at least partially resected as well. However, there are signal changes within the residua of the first metatarsal head, raising the possibility of residual osteomyelitis at this location. Similar circumferential edema/enhancement is noted about the second and third metatarsal heads as well as the second proximal phalangeal base, either reactive or related to additional foci of infection/osteomyelitis. Superimposed edema and enhancement about the extensor and flexor musculature of the forefoot, indicative of superimposed myositis. No clear evidence of a drainable abscess. copyright 2010 [employer]- All Rights Reserved Assessment and Plan - Diagnosis (1) Acute osteomyelitis of metatarsal bone of right foot Is this a current diagnosis for this admission?: Yes (2) Diabetes mellitus type 2 in obese Is this a current diagnosis for this admission?: Yes (3) Hypertension Qualifiers: Hypertension type: essential hypertension Qualified Code(s): I10 - Essential (primary) hypertension Is this a current diagnosis for this admission?: Yes (4) Obesity Qualifiers: Obesity type: due to excess calories Obesity classification: adult class 1 (BMI 30 - 34.9) Serious obesity comorbidity presence: with serious comorbidity Body mass index: unspecified BMI Qualified Code(s): E66.09 - Other obesity due to excess calories Is this a current diagnosis for this admission?: Yes (5) Hyperlipidemia Qualifiers: Hyperlipidemia type: unspecified Qualified Code(s): E78.5 - Hyperlipidemia, unspecified Is this a current diagnosis for this admission?: Yes - Plan Summary Summary: Patient will be admitted to the surgical floor where she will receive routine supportive and symptomatic cares. She will be maintained n.p.o. after midnight and as such will be receiving IV fluids for maintenance utilizing lactated Ringer's at 167 mL/h. She will be restarted on her oral medications for her chronic medical problems as soon as she is able to take oral meds after surgery. In the interim her hypertension will be controlled with hydralazine and/or metoprolol administered IV in order to maintain a blood pressure of less than 160 systolic and less than 100 diastolic. Patient will be treated with IV antibiotics utilizing vancomycin and meropenem with blood and wound cultures pending. Dr. Ponce will be consulted for surgical evaluation treatment. Patient will receive morphine sulfate 2 to 4 mg IV every 2 hours on an as-needed basis for pain using a sliding scale for dosing. - Time Time Spent with patient: 15-24 minutes Medications reviewed and adjusted accordingly: Yes Anticipated discharge: Home with Homehealth, SNF - Inpatient Certification Based on my medical assessment, after consideration of the patient's comorbidities, presenting symptoms, or acuity I expect that the services needed warrant INPATIENT care.: Yes I certify that my determination is in accordance with my understanding of Medicare's requirements for reasonable and necessary INPATIENT services [42 CFR 412.3e].: Yes Medical Necessity: Failure to Improve With Outpatient Therapy, Significant Comorbidiites Make Outpatient Treatment Too Risky, Need Close Monitoring Due to Risk of Patient Decompensation, Need for IV Antibiotics, Need for Surgery, Risk of Complication if Not Cared For in Hospital
--- NOTE | 2019-09-04 15:02 | PDOC PROGRESS REPORT ---
Subjective Progress Note for:: 09/04/19 Subjective:: During encounter this morning, patient was doing well and denied any pain in her right lower extremity. Endorses increased drainage. Discussed with patient and patient's was at bedside. Reason For Visit: OSTEOMYELITIS RIGHT FOOT Physical Exam Vital Signs: Temp Pulse Resp BP Pulse Ox 98.2 F 84 16 170/76 H 99 09/04/19 09:22 09/04/19 09:22 09/04/19 09:22 09/04/19 09:22 09/04/19 09:22 Intake & Output 09/03/19 09/04/19 09/05/19 06:59 06:59 06:59 Intake Total 1100 1000 Balance 1100 1000 Weight 90.6 kg General appearance: PRESENT: no acute distress, cooperative Neck exam: ABSENT: JVD Respiratory exam: PRESENT: clear to auscultation burak, unlabored. ABSENT: tachypnea, wheezes Cardiovascular exam: PRESENT: RRR, +S1, +S2. ABSENT: tachycardia GI/Abdominal exam: PRESENT: normal bowel sounds, soft. ABSENT: rigid, tenderness Extremities exam: PRESENT: other - Right lower extremity wrapped and can clean dressing. Wound without tenderness or perfuse erythema no mild drainage Neurological exam: PRESENT: alert, awake, other - Blind Results Laboratory Results: 09/04/19 05:35 09/04/19 05:35 09/03/19 09/03/19 09/03/19 16:14 16:14 18:25 WBC 8.4 RBC 4.34 Hgb 11.2 L Hct 34.7 L MCV 80 MCH 25.9 L MCHC 32.4 RDW 15.7 H Plt Count 445 Seg Neutrophils % 74.1 Sodium 143.9 Potassium 4.6 Chloride 107 Carbon Dioxide 22 Anion Gap 15 BUN 25 H Creatinine 1.09 Est GFR ( Amer) > 60 Glucose 184 H Lactic Acid 1.8 Calcium 9.8 Magnesium Total Bilirubin 0.5 AST 23 Alkaline Phosphatase 107 Total Protein 8.4 H Albumin 3.8 09/04/19 09/04/19 05:35 05:35 WBC 7.4 RBC 3.83 Hgb 9.9 L Hct 30.2 L MCV 79 L MCH 25.9 L MCHC 32.8 RDW 15.2 H Plt Count 417 Seg Neutrophils % Sodium 143.1 Potassium 4.3 Chloride 111 H Carbon Dioxide 24 Anion Gap 8 BUN 18 Creatinine 0.96 Est GFR ( Amer) > 60 Glucose 212 H Lactic Acid Calcium 9.1 Magnesium 1.8 Total Bilirubin AST Alkaline Phosphatase Total Protein Albumin Impressions: Foot X-Ray 09/03/19 15:50 IMPRESSION: Cannot exclude an abscess in the soft tissues distal to the amputation site. Lower Extremity MRI 09/03/19 17:19 IMPRESSION: Postsurgical changes of a dictation of the first digit at the level of the MTP joint. Likewise, the first metatarsal head appears at least partially resected as well. However, there are signal changes within the residua of the first metatarsal head, raising the possibility of residual osteomyelitis at this location. Similar circumferential edema/enhancement is noted about the second and third metatarsal heads as well as the second proximal phalangeal base, either reactive or related to additional foci of infection/osteomyelitis. Superimposed edema and enhancement about the extensor and flexor musculature of the forefoot, indicative of superimposed myositis. No clear evidence of a drainable abscess. copyright 2010 [employer]- All Rights Reserved Assessment and Plan - Diagnosis (1) Acute osteomyelitis of metatarsal bone of right foot Is this a current diagnosis for this admission?: Yes Plan: Patient had recent Rt 1st toe amputation little over a month ago however now presents with increased drainage from surgical wound. Right foot MRI showing findings suspicious of residual osteomyelitis in the remnant of the first metatarsal head Wound was debrided by Dr. Ponce I spoke with surgicalist and further amputation of metatarsal may lead to difficulty with wound healing given that patient just had recent ABIs 2 weeks ago of 0.35. Ultimately, he recommended that patient either undergo revascularization first or she may need a BKA. We also discussed the other option of treating with IV antibiotics for now and having patient follow-up with her vascular surgeon in the outpatient setting for revascularization. We will continue with vancomycin and meropenem and await tissue culture We will plan for patient to follow-up for revascularization in outpatient setting at this time but will have further discussion with patient regarding po tential need for BKA. (2) Diabetes mellitus type 2 in obese Is this a current diagnosis for this admission?: Yes Plan: Metformin, Lantus, sliding scale insulin, Accu-Cheks, carb restricted diet. (3) Peripheral vascular disease in diabetes mellitus Is this a current diagnosis for this admission?: Yes Plan: Arterial Dopplers on 08/20/2019 showing MAYUR of 0.35 in RLE and 0.7 in LLE We will start patient on aspirin and atorvastatin Patient will ultimately need revascularization and will need to f/u with a vascular surgeon. (4) Hypertension Qualifiers: Hypertension type: essential hypertension Qualified Code(s): I10 - Essential (primary) hypertension Is this a current diagnosis for this admission?: Yes Plan: Currently uncontrolled Resume amlodipine and losartan - Time Time Spent with patient: 15-24 minutes
[2019-09-04] MEDS: LOSARTAN POTASSIUM 50 MG TABLET PO SCH ×2 (16:00→22:40)
[2019-09-04] MEDS: VANCOMYCIN HCL 750 MG in DEXTROSE 5%-WATER 250 ML IV SCH (18:17)
[2019-09-04] MEDS: METFORMIN HCL 500 MG TABLET PO SCH ×2 (18:17→22:44)
[2019-09-04] MEDS: ACETAMINOPHEN 325 MG TABLET PO PRN (18:33)
[2019-09-04] MEDS ORDERED: ATORVASTATIN CALCIUM 40 MG TABLET PO SCH (22:00)
[2019-09-04] MEDS ORDERED: ATORVASTATIN CALCIUM 80 MG TABLET PO SCH (22:00)
[2019-09-04] MEDS ORDERED: INSULIN GLARGINE,HUM.REC.ANLOG 1,000 UNIT/10 ML VIAL SUBCUT SCH (22:00)
[2019-09-04] MEDS ORDERED: AMLODIPINE BESYLATE 10 MG TABLET PO SCH (22:00)
[2019-09-05] MEDS: MEROPENEM 1 GM in NORMAL SALINE 50 ML IV SCH ×2 (05:23→14:40)
[2019-09-05] MEDS: VANCOMYCIN HCL 750 MG in DEXTROSE 5%-WATER 250 ML IV SCH ×2 (06:18→17:11)
[2019-09-05] MEDS: HEPARIN SOD (PORCINE) 5,000 UNIT/ML 1 ML VIAL SUBCUT SCH ×2 (06:19→14:40)
[2019-09-05 07:57] LABS: HEMATOCRIT 30.5 % (36.0-47.0); MEAN CORPUSCULAR HEMOGLOBIN 25.6 pg (27.0-33.4); MEAN CORPUSCULAR HGB CONC 32.7 g/dL (32.0-36.0); MEAN CORPUSCULAR VOLUME 78 fl (80-97); PLATELET COUNT 396 10^3/uL (150-450); RED BLOOD COUNT 3.91 10^6/uL (3.72-5.28); RED CELL DISTRIBUTION WIDTH 15.3 % (11.5-14.0); WHITE BLOOD COUNT 7.4 10^3/uL (4.0-10.5)
[2019-09-05] MEDS: INSULIN REG, HUMAN 100 UNIT/ML 3 ML VIAL (PYX) SUBCUT PRN ×2 (08:01→17:08)
[2019-09-05] MEDS: FAMOTIDINE INJ/PF 20 MG/2 ML SDV IV SCH (09:09)
[2019-09-05] MEDS: LOSARTAN POTASSIUM 50 MG TABLET PO SCH (09:10)
[2019-09-05] MEDS: METFORMIN HCL 500 MG TABLET PO SCH (09:10)
[2019-09-05] MEDS ORDERED: ASPIRIN 81 MG TABLET, ENT COATED PO SCH (10:00)
--- NOTE | 2019-09-05 13:02 | PDOC PROGRESS REPORT ---
Subjective Progress Note for:: 09/05/19 Subjective:: Less pains Reason For Visit: OSTEOMYELITIS RIGHT FOOT Physical Exam Vital Signs: Temp Pulse Resp BP Pulse Ox 97.8 F 111 H 19 128/81 H 99 09/05/19 12:00 09/05/19 12:00 09/05/19 12:00 09/05/19 12:00 09/05/19 12:00 Intake & Output 09/04/19 09/05/19 09/06/19 06:59 06:59 06:59 Intake Total 1100 2400 240 Balance 1100 2400 240 Weight 90.6 kg 94.3 kg Exam: Amputation right big toe has minimal granulation tissue noted with dark discoloration of the skin on the posterior aspect. There is a palpable right popliteal artery pulse but unable to palpate ankle pulses with a MAYUR of 0.34. Results Laboratory Results: 09/05/19 06:28 09/04/19 05:35 09/05/19 06:28 WBC 7.4 RBC 3.91 Hgb 10.0 L Hct 30.5 L MCV 78 L MCH 25.6 L MCHC 32.7 RDW 15.3 H Plt Count 396 Impressions: Foot X-Ray 09/03/19 15:50 IMPRESSION: Cannot exclude an abscess in the soft tissues distal to the amputation site. Lower Extremity MRI 09/03/19 17:19 IMPRESSION: Postsurgical changes of a dictation of the first digit at the level of the MTP joint. Likewise, the first metatarsal head appears at least partially resected as well. However, there are signal changes within the residua of the first metatarsal head, raising the possibility of residual osteomyelitis at this location. Similar circumferential edema/enhancement is noted about the second and third metatarsal heads as well as the second proximal phalangeal base, either reactive or related to additional foci of infection/osteomyelitis. Superimposed edema and enhancement about the extensor and flexor musculature of the forefoot, indicative of superimposed myositis. No clear evidence of a drainable abscess. copyright 2010 [employer]- All Rights Reserved Assessment & Plan - Diagnosis (1) Peripheral vascular disease in diabetes mellitus Is this a current diagnosis for this admission?: Yes (2) Acute osteomyelitis of metatarsal bone of right foot Is this a current diagnosis for this admission?: Yes (3) Diabetes mellitus type 2 in obese Is this a current diagnosis for this admission?: Yes - Time Time Spent with patient: 15-24 minutes - Inpatient Certification Medical Necessity: Need Close Monitoring Due to Risk of Patient Decompensation, Need for IV Antibiotics, Risk of Complication if Not Cared For in Hospital - Plan Summary Plan Summary: Patient is 2 weeks post right first toe ray amputation with an open wound. Has MAYUR of 4.35 on the right side. Discussed with the hospitalist. Patient needs an urgent revascularization to prevent higher amputation. Hospitalist will make arrangements for transfer to [facility] under vascular surgery. Will sign off. Call for any questions.
--- NOTE | 2019-09-05 16:39 | PDOC TRANSFER SUMMARY ---
General Admission Date/PCP: 09/03/19 22:49 JANI FARIA MD Admission Date: 09/03/19 Transfer Date: 09/05/19 Accepting Facility: [facility] Accepting Physician: Dr. Sukhjinder Whitman Resuscitation Status: Full Code - Transfer Diagnosis (1) Acute osteomyelitis of metatarsal bone of right foot Is this a current diagnosis for this admission?: Yes (2) Diabetes mellitus type 2 in obese Is this a current diagnosis for this admission?: Yes (3) Peripheral vascular disease in diabetes mellitus Is this a current diagnosis for this admission?: Yes (4) Hypertension Is this a current diagnosis for this admission?: Yes - Transfer Medications Home Medications: Amlodipine Besylate [Norvasc 10 mg Tablet] 10 mg PO QHS 09/04/19 Insulin Glargine,Hum.rec.anlog [Lantus Insulin 100 Unit/1 ml 10 ml] 25 unit SUBCUT QHS 09/04/19 Losartan Potassium [Cozaar 50 mg Tablet] 50 mg PO Q12 09/04/19 Metformin HCl [Glucophage 500 mg Tablet] 500 mg PO BID 09/04/19 Transfer Medications: Current Medications Acetaminophen (Tylenol 650 Mg Supp) 650 mg [place] Q4HP PRN PRN Reason: For headache, pain or fever Stop: 10/03/19 22:54 Acetaminophen (Tylenol 325 Mg Tablet) 650 mg PO Q4HP PRN PRN Reason: For headache, pain or fever Stop: 10/03/19 22:54 Last Admin: 09/04/19 18:33 Dose: 650 mg Documented by: Amlodipine Besylate (Norvasc 10 Mg Tablet) 10 mg PO QHS [facility] Stop: 10/04/19 21:59 Last Admin: 09/04/19 22:41 Dose: 10 mg Documented by: Aspirin (Ecotrin 81 Mg Ec Tablet) 81 mg PO DAILY [facility] Stop: 10/05/19 09:59 Last Admin: 09/05/19 09:10 Dose: 81 mg Documented by: Atorvastatin Calcium (Lipitor 80 Mg Tablet) 80 mg PO QHS [facility] Stop: 10/04/19 21:59 Last Admin: 09/04/19 22:44 Dose: 80 mg Documented by: Dextrose (Dextrose Inj 50% Syringe (25 Gm/50 Ml)) 12.5 gm IV PRN PRN; Protocol PRN Reason: FOR BG 50-69 IN ALERT PATIENT Stop: 10/03/19 22:55 Dextrose (Dextrose Inj 50% Syringe (25 Gm/50 Ml)) 25 gm IV PRN PRN; Protocol PRN Reason: PER PROTOCOL Stop: 10/03/19 22:55 Famotidine (Pepcid Inj/Pf 20 Mg/2 Ml Sdv) 20 mg IV Q12 [facility] Stop: 10/03/19 22:59 Last Admin: 09/05/19 09:09 Dose: 20 mg Documented by: Glucagon (Glucagen Inj 1 Mg Vial) 1 mg IM PRN PRN; Protocol PRN Reason: Evaluate for BG < 70 Stop: 10/03/19 22:55 Glucose (Glutose 40% Gel 15 Gm Tube) 15 gm PO PRN PRN; Protocol PRN Reason: FOR BG 50-69 IN ALERT PATIENT Stop: 10/03/19 22:55 Glucose (Glutose 40% Gel 15 Gm Tube) 30 gm PO PRN PRN; Protocol PRN Reason: FOR BG < 50 IN ALERT PATIENT Stop: 10/03/19 22:55 Heparin Sodium (Porcine) (Heparin Inj 5,000 Units/Ml 1 Ml Vial) 5,000 unit SUBCUT Q8 [facility] Stop: 10/04/19 05:59 Last Admin: 09/05/19 14:40 Dose: 5,000 unit Documented by: Meropenem 1 gm/ Sodium (Chloride) 50 mls @ 100 mls/hr IV Q8 [facility] Stop: 09/11/19 05:59 Last Admin: 09/05/19 14:40 Dose: 100 mls/hr, 100 mls/hr Documented by: Vancomycin HCl 750 mg/ (Dextrose) 250 mls @ 166.667 mls/hr IV Q12A [facility] Stop: 09/11/19 17:59 Last Infusion: 09/05/19 07:49 Dose: Infused Documented by: Insulin Glargine (Lantus Insulin 100 Unit/1 Ml 10 Ml) 25 unit SUBCUT QHS [facility] Stop: 10/04/19 21:59 Last Admin: 09/04/19 22:56 Dose: Not Given Documented by: Insulin Human Regular (Humulin R (Pyxis) Insulin 100 Unit/Ml 3ml) 0 - 15 unit SUBCUT ACHSP PRN; Protocol PRN Reason: PER PROTOCOL Stop: 10/03/19 22:54 Last Admin: 09/05/19 08:01 Dose: 2 unit Documented by: Losartan Potassium (Cozaar 50 Mg Tablet) 50 mg PO Q12 [facility] Stop: 10/04/19 15:29 Last Admin: 09/05/19 09:10 Dose: 50 mg Documented by: Metformin HCl (Glucophage 500 Mg Tablet) 500 mg PO Q12 [facility] Stop: 10/04/19 15:29 Last Admin: 09/05/19 09:10 Dose: 500 mg Documented by: Morphine Sulfate (Morphine 10 Mg/Ml Inj) 2 mg IV Q2HP PRN PRN Reason: FOR PAIN SCALE 1-2 Stop: 09/10/19 22:54 Ondansetron HCl (Zofran Inj/Pf 4 Mg/2 Ml Sdv) 4 mg IV Q4HP PRN PRN Reason: FOR NAUSEA/VOMITING Stop: 10/03/19 22:49 Sodium Chloride (Saline Flush 2.5 Ml Monoject Prefil Syrin) 2.5 ml IV Q8 [facility] Stop: 10/04/19 05:59 Last Admin: 09/05/19 14:40 Dose: 2.5 ml Documented by: - Allergies Allergies/Adverse Reactions: No Known Allergies Allergy (Verified 09/03/19 15:41) Hospital Course Hospital Course: HPI 74-year-old female with a history of diabetes mellitus type 2, recently diagnosed osteomyelitis s/p right 1st toe amputation, hypertension who presented to the emergency room with drainage from her right foot wound amputation site. Patient admits that she had an amputation of her right great toe on 08/20/2019 and since that time the surgical site has been treated with a wound VAC. Her [facility] nurse came to her house today and remove the wound VAC from the site and noted a extremely foul-smelling purulent discharge from her wound. She subsequently came to the hospital for further evaluation and treatment. She denies associated or accompanying signs and symptoms. She denies prior similar episodes. She has not identified any other aggravating or ameliorating factors for her right foot wound drainage. In the emergency room she was found to have persistent osteomyelitis in the right first metatarsal head on an MRI performed today. Dr. Ponce (Surgery) was consulted by the emergency room physician and he asked that the hospitalist service admit this patient and consult him for surgical treatment. Hospital course The emergency department and patient presentation, MRI of the right foot revealed residual osteomyelitis in the residua of the amputated first metatarsal head. Of note, patient just had recent lower extremity arterial Dopplers on 08/20/2019 which showed severe hemodynamically significant lesions in bilateral lower extremities. MAYUR was 0.76 in the left DP and 0.35 in the right DP. Popliteal artery showed normal flow and velocity. Given patient's significant PVD, surgery opted to perform a bedside debridement and tissue culture was sent which is growing gram negative rods and gram-positive cocci. Surgery suggested that patient be transferred to facility where patient can undergo revascularization before further toe resection/amputation can be performed as that would otherwise compromise wound healing. The only other option would be considering a BKA but it is more preferable to pursue revascularization and fu rther toe amputation for source control rather than BKA at this time. Patient has been placed on vancomycin and meropenem. Blood cultures are negative after 24 hours. Plan (1) Acute osteomyelitis of metatarsal bone of right foot Is this a current diagnosis for this admission?: Yes Plan: Patient had recent Rt 1st toe amputation little over a month ago however now presents with increased drainage from surgical wound. Right foot MRI showing findings suspicious of residual osteomyelitis in the remnant of the first metatarsal head Wound was debrided by Dr. Ponce I spoke with surgicalist and further amputation of metatarsal may lead to difficulty with wound healing given that patient just had recent ABIs 2 weeks ago of 0.35. We will continue with vancomycin and meropenem and await tissue culture Transferring to [facility] for revascularization before proceeding further with toe resection (2) Diabetes mellitus type 2 in obese Is this a current diagnosis for this admission?: Yes Plan: Metformin, Lantus, sliding scale insulin, Accu-Cheks, carb restricted diet. (3) Peripheral vascular disease in diabetes mellitus Is this a current diagnosis for this admission?: Yes Plan: Arterial Dopplers on 08/20/2019 showing MAYUR of 0.35 in RLE and 0.76 in LLE DPs Started patient on aspirin and atorvastatin Patient will ultimately need revascularization and will need a vascular surgeon. (4) Hypertension Qualifiers: Hypertension type: essential hypertension Qualified Code(s): I10 - Essential (primary) hypertension Is this a current diagnosis for this admission?: Yes Plan: Inadequate control amlodipine and losartan Physical Exam Vital Signs: Temp Pulse Resp BP Pulse Ox 97.8 F 111 H 19 128/81 H 99 09/05/19 12:00 09/05/19 12:00 09/05/19 12:00 09/05/19 12:00 09/05/19 12:00 Intake & Output 09/04/19 09/05/19 09/06/19 06:59 06:59 06:59 Intake Total 1100 2400 490 Balance 1100 2400 490 Weight 90.6 kg 94.3 kg General appearance: PRESENT: no acute distress, cooperative Neck exam: ABSENT: JVD Respiratory exam: PRESENT: clear to auscultation burak GI/Abdominal exam: PRESENT: soft. ABSENT: normal bowel sounds, rebound, rigid, tenderness Extremities exam: PRESENT: other - Right great toe surgical wound with some drainage and purulence Neurological exam: PRESENT: alert, awake, oriented to person, oriented to place, oriented to time, oriented to situation, other - Legally blind Results Laboratory Results: 09/05/19 06:28 09/04/19 05:35 09/05/19 06:28 WBC 7.4 RBC 3.91 Hgb 10.0 L Hct 30.5 L MCV 78 L MCH 25.6 L MCHC 32.7 RDW 15.3 H Plt Count 396 Impressions: Foot X-Ray 09/03/19 15:50 IMPRESSION: Cannot exclude an abscess in the soft tissues distal to the amputation site. Lower Extremity MRI 09/03/19 17:19 IMPRESSION: Postsurgical changes of a dictation of the first digit at the level of the MTP joint. Likewise, the first metatarsal head appears at least partially resected as well. However, there are signal changes within the residua of the first metatarsal head, raising the possibility of residual osteomyelitis at this location. Similar circumferential edema/enhancement is noted about the second and third metatarsal heads as well as the second proximal phalangeal base, either reactive or related to additional foci of infection/osteomyelitis. Superimposed edema and enhancement about the extensor and flexor musculature of the forefoot, indicative of superimposed myositis. No clear evidence of a drainable abscess. copyright 2010 [employer]- All Rights Reserved Plan Time Spent: Greater than 30 Minutes
[2019-09-05 17:34] VITALS: BP 170/80
[2019-09-05] MEDS ORDERED: METFORMIN HCL 500 MG TABLET PO ONE (18:00)
[2019-09-05] MEDS ORDERED: CHLORTHALIDONE 25 MG TABLET PO SCH (18:10)
[2019-09-05] MEDS ORDERED: INSULIN GLARGINE,HUM.REC.ANLOG 1,000 UNIT/10 ML VIAL (PYX) SUBCUT PRN (18:18)
[2019-09-05] MEDS: ACETAMINOPHEN 325 MG TABLET PO PRN (19:36)
[2019-09-05] MEDS ORDERED: INSULIN REG, HUMAN 100 UNIT/ML 3 ML VIAL (PYX) SUBCUT SCH (22:00)
[2019-09-05] MEDS ORDERED: INSULIN GLARGINE,HUM.REC.ANLOG 1,000 UNIT/10 ML VIAL SUBCUT SCH (22:00)
[2019-09-06] MEDS ORDERED: METFORMIN HCL 500 MG TABLET PO SCH ×2 (08:00)
== END 2019-09-05 20:12 | disposition short-term general hospital (02) | DRG 638 ==
LOC: ER 13:57 → EH 22:49 → 4N 09-04 16:17
PROVIDERS: ADMIT Emergency Medicine; ATTEND Emergency Medicine
DX: E11.69 Type 2 diabetes mellitus with other specified complication (principal); M86.171 Other acute osteomyelitis, right ankle and foot; E11.51 Type 2 diabetes mellitus with diabetic peripheral angiopathy without gangrene; E66.9 Obesity, unspecified; D64.9 Anemia, unspecified; I10 Essential (primary) hypertension; Z79.4 Long term (current) use of insulin; Z79.82 Long term (current) use of aspirin; Z89.411 Acquired absence of right great toe; H53.40 Unspecified visual field defects; Z87.891 Personal history of nicotine dependence; Z83.3 Family history of diabetes mellitus; Z82.49 Family history of ischemic heart disease and other diseases of the circulatory system; Z68.34 Body mass index [BMI] 34.0-34.9, adult
CPT/HCPCS: 36415; 80048; 80053; 82962; 83605; 83735; 85025; 85027; 87040; 87070; 87075; 87077; 87186; 87205; 96365; 96367; 99284; A9576; J1644; J1815; J2185; J3370; J3490; J7030; J7060; J7120; S0028

== ENCOUNTER → 2020-05-08 | Outpatient (CLI) | payer MEDICARE ==
[2020-05-08 12:13] LABS: ANION GAP 9 (5-19); BLOOD UREA NITROGEN 41 mg/dL (7-20); CALCIUM 9.5 mg/dL (8.4-10.2); CARBON DIOXIDE 23 mmol/L (22-30); CHLORIDE 109 mmol/L (98-107); GLUCOSE 127 mg/dL (75-110); POTASSIUM 4.9 mmol/L (3.6-5.0); TRIGLYCERIDES 181 mg/dL (<150)
[2020-05-08 12:26] LABS: DIRECT LDL 224 mg/dL (<100)
[2020-05-08 12:27] LABS: CHOLESTEROL 362.45 mg/dL (0-200); VLDL CHOLESTEROL 36.2 mg/dL (10-31)
[2020-05-09 18:22] LABS: CREATININE URINE 52.2 mg/dL (Not Estab.)
[2020-05-09 18:48] LABS: MICROALBUMIN URINE 555.9 ug/mL (Not Estab.)
== END ==
LOC: OD 10:40
PROVIDERS: ATTEND Family Medicine
DX: E11.65 Type 2 diabetes mellitus with hyperglycemia (principal); I10 Essential (primary) hypertension; Z79.899 Other long term (current) drug therapy
CPT/HCPCS: 36415; 80048; 80061; 82043; 82570; 83036; 84443